=== PATIENT | female | born 1935 | race American Indian/Alaskan Native ===

== ENCOUNTER 2018-10-10 19:17 | Emergency (ER) | payer MEDICARE, OTHER ==
[~2018-10-10] VITALS: Ht 172.7 cm; Wt 93.4 kg
[~2018-10-10 19:17] MED LIST: ALEN70 PO; AMLO10 PO; AMLO5 PO; ASPI325; ASPI81CH PO; ASPI81EC PO; ATOR10 PO; BACL10 PO; BENZ100A PO; BP MEDS; CLON.1 PO; CYCL10 PO; ERGO50000 PO; FURO20 PO; FURO40 PO; HYDACE5; HYDACE5 PO; HYDCHL25 PO; K-Dur10 MEQ PO; LEVO750 PO; LEVSOD125 PO; LOSA25 PO; LOSA50 PO; MED FOR BP; MELO7.5 PO; METO25 PO; METO50 PO; METO50ER PO; MIRALAX17 GM PO; MORP15ER PO; MULVITMIND PO; NIFE20 PO; NORT10 PO; Norco 10-325 T1 EACH PO; OXYACE5T PO; OXYC1TAB11 PO; POTCHL10ER PO; PROACE100 PO; Potassium Chlo10 ME1 PO; TRAM50 PO; Ultram50 MG PO; VALS80; Ventolin/Prove6.7 GM INH; [UNRECOGNIZED DRUG - REMARK]; oxygen
== END 2018-10-10 20:46 | disposition home or self-care (01) ==
LOC: ER 19:17
DX: R51 Headache (principal); F11.23 Opioid dependence with withdrawal; G89.29 Other chronic pain; Z88.8 Allergy status to other drugs, medicaments and biological substances; Z79.899 Other long term (current) drug therapy; Z79.891 Long term (current) use of opiate analgesic; Z79.82 Long term (current) use of aspirin; I10 Essential (primary) hypertension; Z86.73 Personal history of transient ischemic attack (TIA), and cerebral infarction without residual deficits
CPT/HCPCS: 99283

== ENCOUNTER 2018-11-06 13:46 | Emergency (ER) | payer MEDICARE, OTHER ==
[~2018-11-06] VITALS: Ht 172.7 cm; Wt 94.3 kg
[2018-11-06 15:10] LABS: BASOPHILS ABSOLUTE AUTO 0.04 K/mm3 (0.00-0.23); BASOPHILS PERCENT AUTO 1 % (0-2); EOSINOPHILS ABSOLUTE AUTO 0.05 K/mm3 (0.00-0.68); EOSINOPHILS PERCENT AUTO 1 % (0-6); Hematocrit 38.2 % (33.0-51.0); Hemoglobin 12.7 g/dL (11.5-16.0); IMMATURE GRAN ABSOLUTE AUTO 0.01 K/mm3 (0.00-0.10); IMMATURE GRAN PERCENT AUTO 0 % (0-1); LYMPHOCYTES ABSOLUTE AUTO 1.31 K/mm3 (0.84-5.20); LYMPHOCYTES PERCENT AUTO 30 % (21-46); MONOCYTES ABSOLUTE AUTO 0.51 K/mm3 (0.16-1.47); MONOCYTES PERCENT AUTO 12 % (4-13); Mean Corpuscular HGB 33.3 pg (26.0-34.0); Mean Corpuscular HGB Conc 33.2 g/dL (31.5-36.5); Mean Corpuscular Volume 100 fL (80-100); Mean Platelet Volume 10.8 fL (9.1-12.4); NEUTROPHILS ABSOLUTE AUTO 2.49 K/mm3 (1.96-9.15); NEUTROPHILS PERCENT AUTO 57 % (41-73); NRBC ABSOLUTE 0.02 K/mm3 (0.00-0.02); NRBC Auto 0.5 /100 WBC (0.0-0.2); Platelet Count 219 K/mm3 (150-400); RDW Coefficient Variation 17.9 % (11.7-14.2); RDW Standard Deviation 66.3 fL (35.1-46.3); Red Blood Cell Count 3.81 M/mm3 (3.80-5.20); White Blood Cell Count 4.41 K/mm3 (4.00-11.30)
[2018-11-06 15:43] LABS: Alanine Aminotransfer (ALT/SGP 21 U/L (12-78); Albumin, Blood 4.1 g/dL (3.4-5.0); Albumin/Globulin Ratio 1.2 (0.8-1.8); Alk Phos 42 U/L (50-136); Anion Gap 10 mmol/L (6-16); Aspartate Aminotrans (AST/SGOT 16 U/L (12-37); Bilirubin, Total 0.4 mg/dL (0.1-1.0); Blood Urea Nitrogen 14 mg/dL (8-24); Bun/Creatinine Ratio 14.3 (12.0-20.0); CO2, Blood 23 mmol/L (21-32); Calcium, Blood 8.6 mg/dL (8.5-10.1); Chloride, Blood 110 mmol/L (98-108); Creatinine, Blood 0.98 mg/dL (0.40-1.00); Globulin, Blood 3.5 g/dL (2.2-4.0); Glomerular Filtration Rate 58 (60-); Glucose, Blood 163 mg/dL (70-99); Potassium, Blood 3.7 mmol/L (3.5-5.5); Sodium, Blood 143 mmol/L (136-145); Total Protein, Blood 7.6 g/dL (6.4-8.2); Troponin I <0.015 ng/mL (0.000-0.040)
[2018-11-10] MEDS ORDERED: Robaxin750 MG PO (11:48)
[2018-11-10] MEDS ORDERED: Norco 10-325 T1 EACH PO (11:48)
[2018-11-10] MEDS ORDERED: DONE5 PO (11:48)
[2018-11-10] MEDS ORDERED: METO25ER PO (11:49)
== END 2018-11-06 19:07 | disposition home or self-care (01) ==
LOC: ER 13:46
PROVIDERS: Physician Assistant
DX: M54.2 Cervicalgia (principal); G89.29 Other chronic pain; Z88.8 Allergy status to other drugs, medicaments and biological substances; Z79.899 Other long term (current) drug therapy; Z79.82 Long term (current) use of aspirin; Z79.891 Long term (current) use of opiate analgesic; I10 Essential (primary) hypertension; Z86.73 Personal history of transient ischemic attack (TIA), and cerebral infarction without residual deficits
CPT/HCPCS: 36415; 71046; 80053; 84484; 85025; 93005; 93010; 96374; 99285-25; J1885

== ENCOUNTER 2018-11-09 11:27 | Emergency (ER) | payer MEDICARE, OTHER ==
[~2018-11-09] VITALS: Ht 167.6 cm; Wt 93.9 kg
[~2018-11-09 11:27] MED LIST changes: -AMLO10 PO; -ASPI81CH PO; +Aspirin EC81 MG PO; +CHOL10002 PO; -LEVSOD125 PO; +Synthroid25 MCG PO
[2018-11-09 11:52] LABS: BASOPHILS ABSOLUTE AUTO 0.04 K/mm3 (0.00-0.23); BASOPHILS PERCENT AUTO 1 % (0-2); EOSINOPHILS ABSOLUTE AUTO 0.02 K/mm3 (0.00-0.68); EOSINOPHILS PERCENT AUTO 0 % (0-6); Hematocrit 37.4 % (33.0-51.0); Hemoglobin 12.4 g/dL (11.5-16.0); IMMATURE GRAN ABSOLUTE AUTO 0.02 K/mm3 (0.00-0.10); IMMATURE GRAN PERCENT AUTO 0 % (0-1); LYMPHOCYTES ABSOLUTE AUTO 1.04 K/mm3 (0.84-5.20); LYMPHOCYTES PERCENT AUTO 21 % (21-46); MONOCYTES ABSOLUTE AUTO 0.48 K/mm3 (0.16-1.47); MONOCYTES PERCENT AUTO 10 % (4-13); Mean Corpuscular HGB 32.9 pg (26.0-34.0); Mean Corpuscular HGB Conc 33.2 g/dL (31.5-36.5); Mean Corpuscular Volume 99 fL (80-100); Mean Platelet Volume 11.3 fL (9.1-12.4); NEUTROPHILS ABSOLUTE AUTO 3.42 K/mm3 (1.96-9.15); NEUTROPHILS PERCENT AUTO 68 % (41-73); NRBC ABSOLUTE 0.03 K/mm3 (0.00-0.02); NRBC Auto 0.6 /100 WBC (0.0-0.2); Platelet Count 224 K/mm3 (150-400); RDW Coefficient Variation 18.3 % (11.7-14.2); Red Blood Cell Count 3.77 M/mm3 (3.80-5.20); White Blood Cell Count 5.02 K/mm3 (4.00-11.30)
[2018-11-09 12:21] LABS: Alanine Aminotransfer (ALT/SGP 20 U/L (12-78); Albumin/Globulin Ratio 1.2 (0.8-1.8); Alk Phos 43 U/L (50-136); Anion Gap 9 mmol/L (6-16); Aspartate Aminotrans (AST/SGOT 14 U/L (12-37); Bilirubin, Total 0.4 mg/dL (0.1-1.0); Blood Urea Nitrogen 21 mg/dL (8-24); Bun/Creatinine Ratio 17.8 (12.0-20.0); CO2, Blood 25 mmol/L (21-32); Chloride, Blood 109 mmol/L (98-108); Creatinine, Blood 1.18 mg/dL (0.40-1.00); Globulin, Blood 3.4 g/dL (2.2-4.0); Glomerular Filtration Rate 47 (60-); Glucose, Blood 111 mg/dL (70-99); Magnesium, Blood 2.2 mg/dL (1.6-2.4); Potassium, Blood 3.6 mmol/L (3.5-5.5); Sodium, Blood 143 mmol/L (136-145); Total Protein, Blood 7.4 g/dL (6.4-8.2); Troponin I <0.015 ng/mL (0.000-0.040)
[2018-11-10] MEDS ORDERED: Robaxin750 MG PO (11:48)
[2018-11-10] MEDS ORDERED: Norco 10-325 T1 EACH PO (11:48)
[2018-11-10] MEDS ORDERED: DONE5 PO (11:48)
[2018-11-10] MEDS ORDERED: METO25ER PO (11:49)
== END 2018-11-09 13:13 | disposition home or self-care (01) ==
LOC: ER 11:27
PROVIDERS: Emergency Medicine
DX: I47.1 Supraventricular tachycardia (principal); E78.5 Hyperlipidemia, unspecified; F41.9 Anxiety disorder, unspecified; Z86.73 Personal history of transient ischemic attack (TIA), and cerebral infarction without residual deficits; I50.30 Unspecified diastolic (congestive) heart failure
CPT/HCPCS: 36415; 71046; 80053; 83735; 84484; 85025; 93005; 93010; 99285-25

== ENCOUNTER 2018-11-11 06:35 | Observation (INO) | payer MEDICARE, OTHER ==
[~2018-11-11] VITALS: Ht 172.7 cm; Wt 89.6 kg
[~2018-11-11 06:35] MED LIST changes: +DONE5 PO; +METO25ER PO; +Robaxin750 MG PO
[2018-11-11 07:06] LABS: BASOPHILS ABSOLUTE AUTO 0.04 K/mm3 (0.00-0.23); BASOPHILS PERCENT AUTO 1 % (0-2); EOSINOPHILS ABSOLUTE AUTO 0.05 K/mm3 (0.00-0.68); EOSINOPHILS PERCENT AUTO 1 % (0-6); Hematocrit 36.5 % (33.0-51.0); Hemoglobin 12.2 g/dL (11.5-16.0); IMMATURE GRAN ABSOLUTE AUTO 0.02 K/mm3 (0.00-0.10); IMMATURE GRAN PERCENT AUTO 0 % (0-1); LYMPHOCYTES ABSOLUTE AUTO 1.28 K/mm3 (0.84-5.20); LYMPHOCYTES PERCENT AUTO 23 % (21-46); MONOCYTES ABSOLUTE AUTO 0.63 K/mm3 (0.16-1.47); MONOCYTES PERCENT AUTO 11 % (4-13); Mean Corpuscular HGB 32.8 pg (26.0-34.0); Mean Corpuscular HGB Conc 33.4 g/dL (31.5-36.5); Mean Corpuscular Volume 98 fL (80-100); Mean Platelet Volume 10.4 fL (9.1-12.4); NEUTROPHILS ABSOLUTE AUTO 3.68 K/mm3 (1.96-9.15); NEUTROPHILS PERCENT AUTO 64 % (41-73); NRBC ABSOLUTE 0.02 K/mm3 (0.00-0.02); NRBC Auto 0.4 /100 WBC (0.0-0.2); Platelet Count 228 K/mm3 (150-400); RDW Coefficient Variation 18.6 % (11.7-14.2); Red Blood Cell Count 3.72 M/mm3 (3.80-5.20)
[2018-11-11 07:27] LABS: Albumin/Globulin Ratio 1.2 (0.8-1.8); Bilirubin, Total 0.5 mg/dL (0.1-1.0); Creatinine, Blood 0.95 mg/dL (0.40-1.00); Globulin, Blood 3.3 g/dL (2.2-4.0); Potassium, Blood 3.4 mmol/L (3.5-5.5); Total Protein, Blood 7.3 g/dL (6.4-8.2); Troponin I 0.032 ng/mL (0.000-0.040)
[2018-11-11 12:45] LABS: Magnesium, Blood 2.1 mg/dL (1.6-2.4)
[2018-11-11 12:49] LABS: Thyroid Stimulating Hormone 1.35 uIU/mL (0.360-4.800)
[2018-11-11] MEDS ORDERED: AMLO5 PO (16:23)
--- NOTE | 2018-11-11 16:30 | NUR ---
Echocardiogram completed.
--- NOTE | 2018-11-11 19:15 | NUR ---
ASSUMED CARE OF PT AT APPROXIMATELY 1730. PT ALERT AND ORIENTED. VS STABLE. HR NSR WITH BIGEMINAL PVC WITH A RATE OF 71. PT DENIES FEELING ANY SHORTNESS OF BREATH OR PAIN. HR HAS CONVERTED TO AFLUTTER FOR ABOUT 10 SECONDS WITH A RATE IN THE 140S AND THEN CONVERTS BACK TO NSR WITH PVC. SEE RHYTHM STRIP. PT AND FAMILY ORIENTED TO UNIT. FAMILY STATES PT HAS HX OF DEMENTIA. BED ALARM ON AND IN LOW POSITION. REPORT GIVEN TO DIPTI CAVAZOS.
[2018-11-12] MEDS ORDERED: SIME80CH PO (14:54)
[2018-11-12] MEDS ORDERED: GAVILAX17 GM PO (14:55)
[2018-11-12] MEDS ORDERED: Lopressor 25 mg25 MG PO (14:59)
== END 2018-11-12 15:33 | disposition home or self-care (01) ==
LOC: ER 06:35 → PCU 06:36 → ERHOLD 06:36 → PCU 06:37 → ERHOLD 17:18 → PCU 17:18
PROVIDERS: Emergency Medicine; ADMIT Internal Medicine
DX: I47.1 Supraventricular tachycardia (principal); I11.0 Hypertensive heart disease with heart failure; I50.33 Acute on chronic diastolic (congestive) heart failure; R77.8 Other specified abnormalities of plasma proteins; E87.6 Hypokalemia; E78.5 Hyperlipidemia, unspecified; F03.90 Unspecified dementia, unspecified severity, without behavioral disturbance, psychotic disturbance, mood disturbance, and anxiety; K21.9 Gastro-esophageal reflux disease without esophagitis; F41.9 Anxiety disorder, unspecified; M19.90 Unspecified osteoarthritis, unspecified site; G47.33 Obstructive sleep apnea (adult) (pediatric); Z88.8 Allergy status to other drugs, medicaments and biological substances; Z79.899 Other long term (current) drug therapy; Z79.82 Long term (current) use of aspirin
CPT/HCPCS: 36415; 71260; 80053; 83735; 83880; 84443; 84484; 85025; 93005; 93010; 93306; 96361-59; 96372; 96374-59; 96375; 96376-59; 99285-25; G0378; J1650; J2405; J7030; Q9967

== ENCOUNTER 2019-05-10 12:08 | Inpatient (IN) | payer MEDICARE, OTHER ==
[~2019-05-10] VITALS: Ht 165.1 cm; Wt 93.2 kg
[~2019-05-10 12:08] MED LIST changes: +GAVILAX17 GM PO; +Hair, Skin & N1 EACH PO; -LOSA50 PO; +LOSARTAN POTAS100 MG PO; +Lopressor 25 mg25 MG PO; -MULVITMIND PO; +Norco 10-325 T1 EACH; +SIME80CH PO
[2019-05-10 12:50] LABS: BASOPHILS ABSOLUTE AUTO 0.03 K/mm3 (0.00-0.23); BASOPHILS PERCENT AUTO 1 % (0-2); EOSINOPHILS ABSOLUTE AUTO 0.01 K/mm3 (0.00-0.68); EOSINOPHILS PERCENT AUTO 0 % (0-6); IMMATURE GRAN ABSOLUTE AUTO 0.06 K/mm3 (0.00-0.10); IMMATURE GRAN PERCENT AUTO 1 % (0-1); LYMPHOCYTES PERCENT AUTO 7 % (21-46); MONOCYTES ABSOLUTE AUTO 0.43 K/mm3 (0.16-1.47); MONOCYTES PERCENT AUTO 7 % (4-13); Mean Corpuscular HGB 29.1 pg (26.0-34.0); Mean Corpuscular HGB Conc 30.3 g/dL (31.5-36.5); Mean Corpuscular Volume 96 fL (80-100); Mean Platelet Volume 9.8 fL (9.1-12.4); NEUTROPHILS ABSOLUTE AUTO 5.19 K/mm3 (1.96-9.15); NEUTROPHILS PERCENT AUTO 85 % (41-73); NRBC ABSOLUTE 0.05 K/mm3 (0.00-0.02); NRBC Auto 0.8 /100 WBC (0.0-0.2); Platelet Count 286 K/mm3 (150-400); RDW Coefficient Variation 18.4 % (11.7-14.2); RDW Standard Deviation 64.2 fL (35.1-46.3); Red Blood Cell Count 1.82 M/mm3 (3.80-5.20); White Blood Cell Count 6.12 K/mm3 (4.00-11.30)
[2019-05-10 12:55] LABS: Hemoglobin 5.3 g/dL (11.5-16.0)
[2019-05-10 12:56] LABS: Hematocrit 17.5 % (33.0-51.0)
[2019-05-10 13:02] LABS: International Normalized Ratio 1.14; Prothrombin Time Results 11.9 Sec (9.7-11.5)
[2019-05-10 13:05] LABS: Bun/Creatinine Ratio 27.7 (12.0-20.0); Creatinine, Blood 1.19 mg/dL (0.40-1.00); Potassium, Blood 3.7 mmol/L (3.5-5.5)
[2019-05-10] MEDS ORDERED: MEMA5TAB PO (13:29)
[2019-05-10] MEDS ORDERED: FURO20 PO (13:31)
[2019-05-10] MEDS ORDERED: POTA10T PO (13:32)
[2019-05-10 14:53] LABS: Source, Urine Catheter
[2019-05-10 15:18] LABS: Appearance, Urine Clear (Clear); Bilirubin, Urine Neg (Neg); Blood, Urine 4+ (Neg); Color, Urine Yellow (P-Yellow); Glucose Qualitative, Urine Neg (Neg); Ketones, Urine Neg (Neg); Leukocyte Esterase, Urine 1+ (Neg); Nitrite, Urine Neg (Neg); Protein, Urine Neg (Neg); Specific Gravity, Urine 1.015 (1.003-1.022); Urobilinogen, Urine NORM (Normal)
[2019-05-10 15:42] LABS: Bacteria Mod /hpf; Red Blood Cells, Urine 0-2 /hpf (0-2); Squamous Epithelial Cells Few /hpf (Few); White Blood Cells, Urine 0-2 /hpf (0-5)
[2019-05-10 16:33] LABS: CHOL/HDL RATIO 1.8; Cholesterol 109 mg/dL (50-200); HDL Cholesterol 62 mg/dL (>39); LDL/HDL RATIO 0.4; Low Density Lipoprotein Chol 27 mg/dL (0-110); Triglycerides 100 mg/dL (30-160); Very Low Density Lipoprot Chol 20 mg/dL (6-32)
--- NOTE | 2019-05-10 16:53 | NUR ---
PT ADMITTED TO ICU FROM ER ON [facility]. AWAKE, ALERT, REPEATEDLY STATES NEEDS TO GO TO THE BATHROOM. PLACED ON BEDPAN-NO URINE. ABLE TO ANSWER WHAT HER NAME IS. DENIES PAIN. PERRL, MOVING ALL EXTREMTIES SPONTANEOUSLY. NSR 60'S, BP ELEVATED. NO N/V. COLOR PALE, SKIN W/D. PT'S HERE-UPDATED. DR. CASTANO AT BEDSIDE.
--- NOTE | 2019-05-10 17:41 | NUR ---
NGT PLACED BY SIDRA CAVAZOS-AIR BOLUS HEARD, NO GASTRIC CONTENTS, IRRIGATED. DR. CASTANO HERE AND AWARE. NG D/C. PT UNABLE TO VOID-BLADDER SCAN DONE-OVER 500 CC ON SCAN. ESCUDERO INSERTED BY SIDRA CAVAZOS WITH IMMEDIATE RETURN CLEAR YELLOW URINE. SINUS RHYTHM WITH OCC TO FREQUENT PVCS, BP ELEVATED WITH STRESS OF NG PLACEMENT, IMPROVING. REASSURANCE GIVEN, KNOWS IS IN HOSPITAL. UPDATE TO . MOVING ALL EXTREMITIES. 1ST UNIT BLOOD TRANSFUSION STARTED, CONSENT SIGNED BY . UPDATE TO DR. DÍAZ
--- NOTE | 2019-05-10 18:15 | NUR ---
NO S/S BLEEDING. COLOR PALE. BLOOD INFUSING NO S/S REACTION. NSR, BP STABLE. C/O NECK PAIN-HEATING PAD ON-STATES RELIEF. STATES HAD SOB BUT NOW DENIES. DENIES HEADACHE OR CHEST PAIN.
--- NOTE | 2019-05-10 19:15 | NUR ---
C/O NEEDING TO GO TO THE URINATE. EXPLAINED CATHETER-DRAINING CLEAR YELLOW URINE. BLADDER SCAN DONE-18 CC RESIDUAL. ABDOMEN SOFT. NO N/V. DEMANDING TO URINATE, MULTIPLE REASSURANCE GIVEN. RIGHT AC SITE INFILTRATED. POOR ACCESS. FIRST UNIT PC INFUSED
--- NOTE | 2019-05-10 22:00 | NUR ---
RICHI IS AWAKE, ALERT & ANXIOUS. MOVING ALL EXTREM WO DIFF, POSS LLL HAS LESS MVMT. NOTED W SL L FACIAL DROOP, SPEECH IS GEN CLEAR, BUT PERSEVERATES ABOUT GETTING OUT OF BED, AND CO URINARY URGENCY DESPITE ESCUDERO DRNG MOD AMT CL YELLOW URINE. SECOND UNIT OF PRBC INFUSING & PT REQUIRED ANOTHER IV SITE, AFTER INFILTRATION. CONT W PROTONIX INFUSION, MAINT FLUIDS AT TKO DURING INFUS. NO EMESIS, NO STOOL, NO FLATUS. PT WAS PLACED IN SOFT WRIST RESTRAINTS TO MAINTAIN IV'S, & ESCUDERO, PT TRYING TO CLIMB OUT OF BED. HEATING PAD TO BACK NECK FOR CO NECK PAIN, PT HAS CHRONICALLY, DIFF TO EVAL IF HELPFUL PT INCONSISTENT W COMPLAINTS. PT CALLED, UPDATE GIVEN, ATTEMPTED TO REVIEW MEDS FOR RECONCILIATION, BUT PT REFERRED ME TO LIST HE PROVIDED ACKNOWLEDGING POOR HANDWRITING & ASKED ME TO GET LIST FROM [facility].
[2019-05-11 00:02] LABS: BASOPHILS ABSOLUTE AUTO 0.03 K/mm3 (0.00-0.23); BASOPHILS PERCENT AUTO 0 % (0-2); EOSINOPHILS ABSOLUTE AUTO 0.06 K/mm3 (0.00-0.68); EOSINOPHILS PERCENT AUTO 1 % (0-6); Hematocrit 21.4 % (33.0-51.0); Hematocrit 22.2 % (33.0-51.0); Hemoglobin 7.1 g/dL (11.5-16.0); IMMATURE GRAN ABSOLUTE AUTO 0.09 K/mm3 (0.00-0.10); IMMATURE GRAN PERCENT AUTO 1 % (0-1); LYMPHOCYTES ABSOLUTE AUTO 1.48 K/mm3 (0.84-5.20); LYMPHOCYTES PERCENT AUTO 17 % (21-46); MONOCYTES ABSOLUTE AUTO 0.97 K/mm3 (0.16-1.47); MONOCYTES PERCENT AUTO 11 % (4-13); Mean Corpuscular HGB 29.4 pg (26.0-34.0); Mean Corpuscular HGB Conc 32.7 g/dL (31.5-36.5); Mean Platelet Volume 9.7 fL (9.1-12.4); NEUTROPHILS ABSOLUTE AUTO 6.25 K/mm3 (1.96-9.15); NEUTROPHILS PERCENT AUTO 70 % (41-73); NRBC ABSOLUTE 0.06 K/mm3 (0.00-0.02); NRBC Auto 0.7 /100 WBC (0.0-0.2); Platelet Count 231 K/mm3 (150-400); RDW Coefficient Variation 16.8 % (11.7-14.2); RDW Standard Deviation 54.2 fL (35.1-46.3); Red Blood Cell Count 2.38 M/mm3 (3.80-5.20); White Blood Cell Count 8.88 K/mm3 (4.00-11.30)
[2019-05-11 00:03] LABS: Mean Corpuscular Volume 90 fL (80-100)
[2019-05-11 00:22] LABS: Percent Saturation 78.5 % (15.0-50.0)
--- NOTE | 2019-05-11 01:00 | NUR ---
PT CONT AGITATED & RESTLESS. HAS REMOVED PAS W FEET & MANAGED TO ALSO REMOVE STATLOCK FOR ESCUDERO, WHICH WAS REPLACED. CONT W RD SOFT WRIST RESTRAINTS, & YELLING TO STAFF. H&H REPORTED TO HOSP, AND TRANSFUSION PARAMETERS REC'D, ALSO ORDER FOR FENTANYL. PT HAS BEEN MED, ONLY MINIMAL RESULT NOTED. CONT WO ANY SIGN OF BLEEDING.
--- NOTE | 2019-05-11 03:00 | NUR ---
ORDER RECEIVED & PT MED W ZYPREXA AFTER PT SEEN BY DR OLIVER. CONT W WRIST RESTRAINTS. PT WAS ABLE TO DISCONNECT ESCUDERO, PART LINEN CHANGE. CONT TO MON. LIGHTS LOW W ATTEMPT TO DECREAS STIMULATION & PROMOTE REST. NO SIGN OF BLEEDING.
[2019-05-11 03:21] LABS: BASOPHILS ABSOLUTE AUTO 0.04 K/mm3 (0.00-0.23); BASOPHILS PERCENT AUTO 1 % (0-2); EOSINOPHILS ABSOLUTE AUTO 0.07 K/mm3 (0.00-0.68); EOSINOPHILS PERCENT AUTO 1 % (0-6); Hematocrit 22.5 % (33.0-51.0); Hemoglobin 7.2 g/dL (11.5-16.0); IMMATURE GRAN PERCENT AUTO 1 % (0-1); LYMPHOCYTES ABSOLUTE AUTO 0.83 K/mm3 (0.84-5.20); LYMPHOCYTES PERCENT AUTO 10 % (21-46); MONOCYTES PERCENT AUTO 9 % (4-13); Mean Corpuscular HGB 28.7 pg (26.0-34.0); Mean Corpuscular Volume 90 fL (80-100); Mean Platelet Volume 9.4 fL (9.1-12.4); NEUTROPHILS ABSOLUTE AUTO 6.84 K/mm3 (1.96-9.15); NEUTROPHILS PERCENT AUTO 79 % (41-73); NRBC ABSOLUTE 0.07 K/mm3 (0.00-0.02); NRBC Auto 0.8 /100 WBC (0.0-0.2); Platelet Count 241 K/mm3 (150-400); RDW Coefficient Variation 17.1 % (11.7-14.2); RDW Standard Deviation 56.5 fL (35.1-46.3); Red Blood Cell Count 2.51 M/mm3 (3.80-5.20); White Blood Cell Count 8.68 K/mm3 (4.00-11.30)
[2019-05-11 03:36] LABS: Anion Gap 7 mmol/L (6-16); Blood Urea Nitrogen 22 mg/dL (8-24); Bun/Creatinine Ratio 25.3 (12.0-20.0); CO2, Blood 26 mmol/L (21-32); Calcium, Blood 8.3 mg/dL (8.5-10.1); Chloride, Blood 111 mmol/L (98-108); Creatinine, Blood 0.87 mg/dL (0.40-1.00); Glomerular Filtration Rate >60 (60-); Glucose, Blood 118 mg/dL (70-99); Potassium, Blood 2.9 mmol/L (3.5-5.5); Sodium, Blood 144 mmol/L (136-145)
--- NOTE | 2019-05-11 07:00 | NUR ---
DR CASTANO CALLED TO CHECK ON PT STATUS. ORDERS REC'D. PLANS FOR EGD THIS AFTERNOON. DAYSURGERY NOTIFIED. PT WAS NOTED TO BE PASSING FLATUS, BUT OTHERWISE WO ANY STOOL OR EMESIS.
--- NOTE | 2019-05-11 08:13 | NUR ---
ASSESSMENT- PT AWAKE, CALLING OUT FOR HELP. MULTIPLE REASSURANCES GIVEN. ABLE TO STATE NAME AND WHERE SHE IS. CAN FOLLOW SOME DIRECTIONS. C/O NECK PAIN, REPOSITIONED, HEATING PAD ON. RX FOR PAIN COMPLAINTS, STATES FEELS BETTER AND "I CAN TAKE A NAP NOW". BILATERAL WRIST RESTRAINTS OFF, NOT PULLING AT LINES. WILL MONITOR. ORAL CARE DONE. LEFT SLIGHT FACIAL DROOP, MOVES ALL EXTREMITIES IN BED. NO S/S BLEEDING. NSR, BP STABLE VIA RIGHT WRIST BP CUFF. PIV X 2 LEFT HAND INTACT WITH PROTONIX AT 10 CC/HR AND NS AT 50 CC/HR. ANOTHER SITE PLACED RIGHT WRIST. LUNGS CLEAR, NO SOB. DENIES ANY CP OR ABDOMINAL PAIN. ABDOMEN SOFT, NONTENDER. UO VIA ESCUDERO.
--- NOTE | 2019-05-11 08:28 | NUR ---
PT SLEEPING NOW WITHOUT ANY DISTRESS. CALLED-UPDATED. STATES WILL TRY TO BE HERE FOR SCOPE TODAY.
--- NOTE | 2019-05-11 09:58 | NUR ---
PT RESTING, ASSISTED TO REPOSITION FOR COMFORT. DR. CASTANO CALLED-UPDATED WITH K REPLACEMENT, WILL DRAW LEVEL AT NOON. VSS. PT ABLE TO TAKE PREP
--- NOTE | 2019-05-11 11:41 | NUR ---
PT MORE AWAKE AND RESTLESS. WANTS TO GET OOB TO URINATE. EXPLAINED PLAN OF CARE. REPOSITIONED. GRANDDAUGHTER HERE-UPDATED. DR. DÍAZ HERE-UPDATED. ORDERS FOR LOPRESSOR AND NORVASC TO BE HELD. POTASSIUM INFUSING. WILL CHECK LABS ORDERED.
[2019-05-11 12:25] LABS: Hematocrit 22.1 % (33.0-51.0)
--- NOTE | 2019-05-11 12:54 | NUR ---
AWAKE, NEEDS MUCH REASSURANCE TO NOT PULL AT LINES AND THAT SHE IS OK. STATES NECK FEELS BETTER. HAS PERIODS THAT SHE HAS NORMAL CONVERSATION AND THEN PERIODS OF REPETITIVE QUESTIONS AND DEMANDS. VSS. NO S/S BLEEDING
--- NOTE | 2019-05-11 13:06 | NUR ---
UPDATE TO PHYSICIANS- CALLED DR. CASTANO WITH H/H AND K LEVEL. ORDERS TO TRANSFUSE ONE UNIT. PLANS FOR EGD AT 1630. CALLED DR. DÍAZ WITH UPDATE. PT RESTLESS, ON BEDPAN NOW
[2019-05-11] MEDS ORDERED: BACL10 (14:43)
[2019-05-11] MEDS ORDERED: Oyster Shell C500 MG PO (14:44)
[2019-05-11] MEDS ORDERED: Excedrin Extra1 EACH PO (14:45)
[2019-05-11] MEDS ORDERED: TIZA4 PO (14:49)
--- NOTE | 2019-05-11 14:55 | NUR ---
MEDICATION REC- DISCUSSED MEDICATIONS WITH PT'S . STATES NO ALLERGY TO BACLOFEN. REVIEWED MEDICATION LIST WITH PT'S -UPDATED ON MED REC.
--- NOTE | 2019-05-11 15:19 | NUR ---
Echocardiogram completed.
--- NOTE | 2019-05-11 15:22 | NUR ---
BLOOD INFUSING WITHOUT ANY S/S REACTION. BEDSIDE ECHO DONE. PT'S HERE-UPDATED. PT CALMER. SMALL SMEAR STOOL-LINEN CHANGE
--- NOTE | 2019-05-11 16:22 | NUR ---
PT RESTING. SURGERY CREW IN ROOM PREPARING FOR SCOPE
--- NOTE | 2019-05-11 16:36 | NUR ---
05/11/19 1636 Yamil Fortune History, Chart, Medications and Allergies reviewed before start of procedure.MONITOR INTACT WITH CONTINUOUS PULSE OXIMETRY AND INTERMITTENT BP.3-LEAD EKG REVIEWED WITH PHYSICIAN PRIOR TO START OF PROCEDURE.O2 VIA N/C INTACT THROUGHOUT SEDATION/PROCEDURE. Patient confirms NPO status and agrees with scheduled surgery.See Anesthesia record.
--- NOTE | 2019-05-11 17:26 | NUR ---
SCOPE- PROCEDURE STARTED. DELAYED DUE TO LEAVING BEFORE CONSENT FOR ANESTHESIA-RETURNED AND CONSENT OBTAINED BY DR. ANDERSON. LUNGS COARSE, LASIX 10 MG GIVEN IV PER ORDERS. MAINTAINING SATURATIONS.
--- NOTE | 2019-05-11 17:43 | NUR ---
Per admit trigger, I met with Mrs. Mix to offer prayer and spiritual support. She was alone in room, restless and confused. She appears frail and was unable to understand conversation. I prayed at bedside and offered calm presence/assurance of safety. I will remain available to pt and family.
--- NOTE | 2019-05-11 18:15 | NUR ---
SCOPE COMPLETE. PT SEDATE, POSTIONED ON LEFT SIDE. AWAKENS TO NAME. AT BEDSIDE. VSS. LUNGS IMPROVED. PIV X 2 INTACT. NS AT 75 CC/HR, PROTONIX AT 10 CC/HR. UO GOOD VIA ESCUDERO AFTER LASIX. PLANS FOR COLONOSCOPY TOMORROW, PREP TO BE GIVEN TONIGHT
[2019-05-11 18:37] LABS: Hematocrit 29.4 % (33.0-51.0); Hemoglobin 9.3 g/dL (11.5-16.0)
--- NOTE | 2019-05-11 19:00 | NUR ---
BECOMING MORE AGITATED, PICKING AT LINES. INCONTINENT SMALL AMOUNT BURGUNDY STOOL, LINEN CHANGE X 2 DONE. MULTIPLE REASSURANCES, REDIRECTION. REPORT TO DAVEY CAVAZOS
--- NOTE | 2019-05-11 23:00 | NUR ---
1914: ASSUMED CARE OF PT, REPORT RCV'D FROM MACY CHINO. PT ALERT TO VERBAL STIMULI AND CONFUSED. PT HAS PERIODS OF CLARITY WHERE SHE APPEARS TO UNDERSTAND WHERE SHE IS AND WHAT HER SITUATION IS. OTHERWISE SHE YELLS "SOMEBODY HELP ME" AND ASKS REPEATEDLY WHAT SHE HAS DONE "TO DESERVE THIS". PT PLACED IN BILATERAL SOFT WRIST RESTRAINTS AT 2110 D/T CONFUSION AND PULLING ON ESCUDERO. NG TUBE PLACED TO ASSIST IN ADMINISTERING GOLYTELY PRESCRIBED. PT ALREADY INCONTINENT OF MAROON LIQUID STOOL SO RECTAL TUBE PLACED. GOLYTELY STARTED @2049 AND FINISHED @2314. RECTAL TUBE BAG CHANGED AT 2344. STOOL STILL BROWN/MAROON. NEUROLOGICAL EXAM COMPLETED, MINIMAL LEFT SIDED FACIAL DROOP NOTICED. NO CHANGE PER DAYSHIFT NURSE. PT COMPLAINS OF NECK/BACK/ARM PAIN, MEDICATED PER EMAR NEEDED. NS @75 ML/HR. PROTONIX @10 ML/HR. SEE FULL SHIFT ASSESSMENT.
[2019-05-12 03:29] LABS: BASOPHILS ABSOLUTE AUTO 0.04 K/mm3 (0.00-0.23); BASOPHILS PERCENT AUTO 1 % (0-2); EOSINOPHILS ABSOLUTE AUTO 0.09 K/mm3 (0.00-0.68); EOSINOPHILS PERCENT AUTO 1 % (0-6); Hematocrit 25.1 % (33.0-51.0); Hemoglobin 8.1 g/dL (11.5-16.0); IMMATURE GRAN ABSOLUTE AUTO 0.06 K/mm3 (0.00-0.10); IMMATURE GRAN PERCENT AUTO 1 % (0-1); LYMPHOCYTES ABSOLUTE AUTO 0.97 K/mm3 (0.84-5.20); LYMPHOCYTES PERCENT AUTO 12 % (21-46); MONOCYTES ABSOLUTE AUTO 1.08 K/mm3 (0.16-1.47); MONOCYTES PERCENT AUTO 13 % (4-13); Mean Corpuscular HGB 29.1 pg (26.0-34.0); Mean Corpuscular HGB Conc 32.3 g/dL (31.5-36.5); Mean Corpuscular Volume 90 fL (80-100); Mean Platelet Volume 9.1 fL (9.1-12.4); NEUTROPHILS ABSOLUTE AUTO 5.88 K/mm3 (1.96-9.15); NEUTROPHILS PERCENT AUTO 73 % (41-73); NRBC ABSOLUTE 0.06 K/mm3 (0.00-0.02); NRBC Auto 0.7 /100 WBC (0.0-0.2); Platelet Count 217 K/mm3 (150-400); RDW Coefficient Variation 17.4 % (11.7-14.2); RDW Standard Deviation 57.5 fL (35.1-46.3); Red Blood Cell Count 2.78 M/mm3 (3.80-5.20); White Blood Cell Count 8.12 K/mm3 (4.00-11.30)
[2019-05-12 03:49] LABS: Albumin, Blood 3.4 g/dL (3.4-5.0); Anion Gap 7 mmol/L (6-16); Blood Urea Nitrogen 14 mg/dL (8-24); Bun/Creatinine Ratio 18.3 (12.0-20.0); CO2, Blood 27 mmol/L (21-32); Calcium, Blood 7.5 mg/dL (8.5-10.1); Chloride, Blood 114 mmol/L (98-108); Creatinine, Blood 0.76 mg/dL (0.40-1.00); Glomerular Filtration Rate >60 (60-); Glucose, Blood 109 mg/dL (70-99); Phosphorus, Blood 1.4 mg/dL (2.5-4.9); Sodium, Blood 148 mmol/L (136-145)
--- NOTE | 2019-05-12 06:00 | NUR ---
SHIFT SUMMARY PT CONFUSED ENTIRE SHIFT. PT CONTINUED TO TRY AND PULL OUT LINES/TUBES AND DID SUCCESSFULLY PULL OUT HER NG TUBE WHILE RESTRAINED. PT REMAINS RESTRAINED WITH BILATERAL SOFT WRIST RESTRAINTS TO PROTECT ESCUDERO, RECTAL TUBE, AND IV'S. PT IS YELLING OUT FOR AND INSISTS THAT SHE IS AT HOME AND NOT AT THE HOSPITAL DESPITE REORIENTATION. 4 LITER OF GOLYTELY SUCCESSFULLY GIVEN DOWN NGT. RECTAL TUBE REMAINS IN PLACE WITH 2300 OUT IN COLLECTION BAG AND SIGNIFICANT AMOUNTS IN THE BED. BOWEL MOVEMENT IS CLEAR, RED. PT HAD 4 INCIDENCES OF SVT LASTING 30-45 SECONDS WITH HR>160. PROTONIX GTT @10 ML/HR, NS@75 ML/HR, KCL@ 50 ML/HR. WILL REPORT TO DAYSHIFT NURSE. CURRENTLY
--- NOTE | 2019-05-12 06:40 | NUR ---
DR. CASTANO CALL TO CHECK ON PROGRESS OF PT'S BOWEL PREP. ENGRSTOM ORDER TO REMOVE RECTAL TUBE AND HE WILL CALL BACK LATER THIS MORNING TO ASSESS PT'S PREP.
--- NOTE | 2019-05-12 08:48 | NUR ---
ASSUMPTION OF CARE ASSUMED CARE OF PT @ 0700. REPORT FROM GROUP INSURANCE SPECIAL AGENT RN THAT THE PT DID NOT SLEEP WELL T/O NIGHT. PT NOW SLEEPING IN BED, VSS. BILATERAL WRIST RESTRAINTS IN PLACE TO PROTECT TUBES/LINES/CORDS. PLAN: COLONOSCOPY SCHEDULED FOR TODAY, WILL INQUIRE REGARDING LOW PHOS
--- NOTE | 2019-05-12 09:00 | NUR ---
PT WAKING UP, AROUSES TO VERBAL STIMULI, BUT QUICKLY FALLS BACK TO SLEEP. PT CONFUSED TO LOCATION, STS SHE IS AT A HOTEL.
--- NOTE | 2019-05-12 09:50 | NUR ---
PROLONGED RUN OF SVT WHILE IN PTS ROOM, MONITOR SHOWED SVT RHYTHM WITH RUN LASTING APPROX 5 MINUTES. PT COMPLAINED OF R SIDED CP THAT WAS WORSE WITH INSPIRATION, CRACKLES NOTED TO RIGHT LOBE. PTS BP INCREASED TO 213/96. CALL TO DR FRANKLIN PLACED. NEW ORDERS FOLLOWS: ORDER MAGNESIUM BLOOD LEVEL CHEST XRAY METOPROLOL TARTRATE 25MG PO BID POTASSIUM PHOSPHOROUS 30 MMOL IV X1 H&H FOR 05/12/19 @ 1400 METOPROLOL ADMINISTERED, BP IMPROVED.
--- NOTE | 2019-05-12 11:00 | NUR ---
DR CASTANO GIVEN UPDATE OVER THE PHONE; NEW ORDERS TO PLACE NG AND GIVE 2 LITERS GOLYTELY, AND TO DC RECTAL TUBE. 16F NGT PL[address] TO RIGHT NARE. LIDOCAINE JELLY USED. PT TOLERATED PROCEDURE VERY WELL. POSITION CONFIRMED BY AUSCULTATION OVER STOMACH, ASP OF GASTRIC CONTENT, AND CHEST XRAY. GOLYTELY GIVEN OVER 1 HR. LARGE AMT OF THIN LIQUID DARK BLOOD FOLLOWED PER RECTUM. RECTAL TUBE DC'D AT 1100. PT ABLE TO USE BEDPAN AT TIMES, INCONTINENT WELL.
[2019-05-12 14:32] LABS: Hematocrit 24.8 % (33.0-51.0)
--- NOTE | 2019-05-12 15:30 | NUR ---
DAY SURGERY TO ROOM TO PREP FOR COLONOSCOPY
--- NOTE | 2019-05-12 16:33 | NUR ---
05/12/[address] HERE TO PROVIDE ANESTHESIA CARE, PLEASE SEE ANESTHESIA RECORD FOR DETAILS. History, Chart, Medications and Allergies reviewed before start of procedure. Patient confirms NPO status and agrees with scheduled surgery. MONITOR INTACT WITH CONTINUOUS PULSE OXIMETRY AND INTERMITTENT BP. O2 VIA NRB 10L INTACT THROUGHOUT SEDATION/PROCEDURE.
--- NOTE | 2019-05-12 19:31 | NUR ---
SHIFT SUMMARY PT RESTED T/O SHIFT, AROUSES TO VERBAL STIMULI. PT REMAINS CONFUSED, REQUIRING REORIENTATION. PT COOPERATIVE, FOLLOWING DIRECTIONS BUT ANXIOUS AT TIMES. VSS THROUGH MOST OF SHIFT, PROLONGED RUN OF SVT AT BEGINNING OF SHIFT (SEE NURSE NOTE). NGT INSERTED THIS SHIFT PER PHYSICIAN ORDER, GO-LYTLEY ADMINISTERED VIA NG FOR PROCEDURE PREP. COLONOSCOPY PERFORMED THIS SHIFT BY DR CASTANO, REFER TO PROCEDURE NOTE. PT WOKE UP FROM ANESTHESIA SLIGHTLY CONFUSED, SHIVERING AND STATING SHE WAS COLD. WARM BLANKETS PROVIDED. NG TUBE DC'D PER DR CASTANO, PT TOLERATED WELL.
--- NOTE | 2019-05-12 19:34 | NUR ---
PT'S QT NOTED TO BE PROLONGED THIS EVENING. QTC .533 IN AM AND .500 THIS EVENING. EKG COMPLETED AND SHOWED .501. TRINITY MARINA NOTIFIED, NO NEW ORDERS, WILL CONTINUE TO MONITOR QTC. DAVEY CAVAZOS NOTIFIED.
--- NOTE | 2019-05-12 19:44 | NUR ---
ASSUMED CARE OF PT, REPORT RCV'D FROM MACY GARNETT. PT DROWSY, ALERT TO NAME AND STATES LOCATION "HOSPITAL", PT UNABLE TO RECALL SITUATION, MONTH, AND STATES YEAR "[birth year]". PT FOLLOWS COMMANDS AND ASSISTS WITH CARE, PT ABLE TO REPOSITION SELF FOR COMFORT AND VERBALLY EXPRESS NEEDS. LUNG SOUNDS CLEAR T/O. SATS>94% ON ROOM AIR. VSS. ESCUDERO PATENT AND DRAINING CLEAR YELLOW URINE. NS @75 ML/HR, PROTONIX GTT@ 10 ML/HR. BED IN LOW LOCKED POSITION, SIDE RAILS UP, BED ALARM ON, DOOR AND CURTAIN OPEN. SEE FULL SHIFT ASSESSMENT.
[2019-05-12 20:23] LABS: Hematocrit 24.2 % (33.0-51.0); Hemoglobin 7.5 g/dL (11.5-16.0)
[2019-05-13 04:06] LABS: BASOPHILS ABSOLUTE AUTO 0.04 K/mm3 (0.00-0.23); BASOPHILS PERCENT AUTO 1 % (0-2); EOSINOPHILS ABSOLUTE AUTO 0.16 K/mm3 (0.00-0.68); EOSINOPHILS PERCENT AUTO 2 % (0-6); Hematocrit 24.5 % (33.0-51.0); Hemoglobin 7.6 g/dL (11.5-16.0); IMMATURE GRAN ABSOLUTE AUTO 0.04 K/mm3 (0.00-0.10); IMMATURE GRAN PERCENT AUTO 1 % (0-1); LYMPHOCYTES ABSOLUTE AUTO 1.04 K/mm3 (0.84-5.20); LYMPHOCYTES PERCENT AUTO 15 % (21-46); MONOCYTES ABSOLUTE AUTO 0.82 K/mm3 (0.16-1.47); MONOCYTES PERCENT AUTO 12 % (4-13); Mean Corpuscular HGB 29.3 pg (26.0-34.0); Mean Platelet Volume 9.3 fL (9.1-12.4); NEUTROPHILS ABSOLUTE AUTO 4.88 K/mm3 (1.96-9.15); NEUTROPHILS PERCENT AUTO 70 % (41-73); NRBC ABSOLUTE 0.05 K/mm3 (0.00-0.02); NRBC Auto 0.7 /100 WBC (0.0-0.2); Platelet Count 195 K/mm3 (150-400); RDW Coefficient Variation 17.2 % (11.7-14.2); RDW Standard Deviation 58.1 fL (35.1-46.3); Red Blood Cell Count 2.59 M/mm3 (3.80-5.20); White Blood Cell Count 6.98 K/mm3 (4.00-11.30)
[2019-05-13 04:07] LABS: Mean Corpuscular Volume 95 fL (80-100)
[2019-05-13 04:25] LABS: Alanine Aminotransfer (ALT/SGP 18 U/L (12-78); Albumin, Blood 3.1 g/dL (3.4-5.0); Albumin/Globulin Ratio 1.1 (0.8-1.8); Alk Phos 31 U/L (50-136); Anion Gap 5 mmol/L (6-16); Aspartate Aminotrans (AST/SGOT 12 U/L (12-37); Bilirubin, Total 0.7 mg/dL (0.1-1.0); Blood Urea Nitrogen 7 mg/dL (8-24); Bun/Creatinine Ratio 10.3 (12.0-20.0); CO2, Blood 25 mmol/L (21-32); Chloride, Blood 116 mmol/L (98-108); Creatinine, Blood 0.68 mg/dL (0.40-1.00); Globulin, Blood 2.7 g/dL (2.2-4.0); Glomerular Filtration Rate >60 (60-); Glucose, Blood 108 mg/dL (70-99); Phosphorus, Blood 1.6 mg/dL (2.5-4.9); Potassium, Blood 3.1 mmol/L (3.5-5.5); Sodium, Blood 146 mmol/L (136-145); Total Protein, Blood 5.8 g/dL (6.4-8.2)
--- NOTE | 2019-05-13 05:38 | NUR ---
SHIFT SUMMARY PT REMAINS ACUTELY CONFUSED WITH PERIODS OF HALLUCINATIONS (I.E. BELIEVING THE ROOM WAS ON FIRE AND THINKING THAT SHE HAD BEEN KIDNAPPED). PT PLACED IN BILATERAL SOFT-WRIST RESTRAINTS AT 0200 TO PROTECT LINES/TUBES. PT PULLED 2 IV'S, PULLED SCD'S OFF, PULLED 2 STAT LOCKS OFF ATTEMPTING TO REMOVE ESCUDERO, AND WAS ATTEMPTING TO GET OUT OF BED ON SEVERAL OCCASIONS. PT YELLS FOR HELP, IS REORIENTED AND QUICKLY BECOMES CONFUSED AGAIN. BED ALARM REMAINS ON, BED IN LOW LOCKED POSITION, SIDE RAILS UP, CURTAIN/DOOR OPEN. PT HAS HAD PERIODS OF HTN, WHICH COULD BE ATTRIBUTED TO MOVING IN BED WHILE BP CUFF INFLATING/DEFLATING. ESCUDERO PATENT AND DRAINING CLEAR YELLOW URINE. PT ATTEMPTED TO USE BEDPAN ON 2 OCCASIONS BUT WAS UNABLE TO HAVE BOWEL MOVEMENT. ATTENDS IN PLACE. NO SIGNS OF ACTIVE BLEEDING NOTED. AM H/H SHOWS IMPROVEMENT. K+ AND PHOS BEING REPLACED THIS MORNING. NS@ 75 ML/HR. POWERGLIDE IN [place]. NO RUNS OF SVT THIS SHIFT. PT ABLE TO SWALLOW USING A STRAW WELL WHEN SHE WANTS TO, NO COUGHING. MORNING PO PRILOSEC HELD D/T PT'S INCREASED CONFUSION AND RISK FOR ASPIRATION. WILL REPORT TO DAYSHIFT NURSE.
--- NOTE | 2019-05-13 07:55 | NUR ---
BEGINNING OF SHIFT Assumed care at 0700. Bedside report received from Jalen CAVAZOS. Pt on room air. Pt confused, yelling out "Help me! Somebody please help me! Cut my hands loose!". Pt in bilateral soft wrist restraints. This RN asked pt about current location, pt states she is in "[facility]". Pt states current year is "1976". Mccray catheter removed and pt taken out of restraints. Will continue to assess need for restraints.
--- NOTE | 2019-05-13 11:08 | NUR ---
UPDATE Pt's spouse called unit for update. Update provided. Call transferred into pt's room so pt could speak to her . Pt remains out of restraints. Pt up to chair with physical therapy. This RN and KANDACE Cantor assisted to to use BSC. Pt voided urine into commode. Pt assisted back to chair.
[2019-05-13 12:15] LABS: Hematocrit 25.9 % (33.0-51.0)
--- NOTE | 2019-05-13 13:17 | NUR ---
PT BACK TO BED Pt assisted again to use bedside commode and then back to bed, per pt request. Pt medical floor status without telemetry.
--- NOTE | 2019-05-13 14:53 | NUR ---
PT VISITING WITH Pt up in chair per OT. Pt states her neck is in pain. Pt does not provide numerical value for severity of pain, nor does she describe quality of pain. Pt's spouse states that they treat the pt's neck pain with ice and heat at home.
--- NOTE | 2019-05-13 16:02 | NUR ---
CODE STATUS POLST form found in chart stating that pt is a DNR. Discussed POLST with Niurka CAVAZOS from palliative care. Discussion with pt and spouse regarding code status. Pt and spouse state wishes agreeable with existing POLST. Dr Richey notified. Code status changed to DNR.
--- NOTE | 2019-05-13 17:04 | NUR ---
Initial Visit; Pt here for CVA, found in the ER to have a GI bleed as well. Pt of Dr. Henry's. She is alert, not oriented. She believes it to be 1974 and states that Horacio is president. She has history of dementia. Pt's , Tony, is at bedside. Reviewed POLST form with both of them. Tony defers to her to make her own choices. Pt has existing POLST from 2016. Interventions reviewed. CPR and intubation explained to her carefully. She states that she will accept intubation, but she does not want CPR/chest compressions. This is consistent with existing POLST wishes. Tony reports that pt's function is day-by-day basis. There are days that she is able to walk, usually with a cane, sometimes she forgets to use it. Some days she is able to get her pants on, other days he has to help her with it. He states that it is common for her to get both legs into one leg hole in her pants. She has fallen in the past. He reports that she is not always able to participate in activities. She likes to go fishing with him at times, but she sits in the truck and watches from the shore. She has locked herself in a [id number] once, so he reports that she is supervised most of the time. He feels that she is "fairly safe" in the home. He does not have concerns at this time. He leaves shortly thereafter to go home. She is upset when she finds out that he has left and tries to get out of bed. She is coaxed back into bed, but states that she is not happy with him leaving her here and wants to go home. Will remain available if needed.
--- NOTE | 2019-05-13 18:11 | NUR ---
SUMMARY Pt has been OOB several times to sit into chair and use bedside commode. Pt transfers well with one person assist and gait belt. This RN found pt in room with powerglide removed from arm. Pt pulling on dressing. This RN notified Dr Richey. Pt okay to not have IV access. Okay to DC IV fluids. Plans for pt to transfer to room 351.
--- NOTE | 2019-05-13 18:46 | NUR ---
PT TRANSFERRED TO ROOM FROM ICU. SETTLED TO BED. PT ALERT, TO SELF AND FOLLOWING BASIC DIRECTIONS. BED IN LOW POSITION, CALL LITE IN REACH, BED ALARM ON FOR SAFETY,
--- NOTE | 2019-05-13 22:49 | NUR ---
RICHI IS UP AND DOWN OUT OF BED, UNSTEADY ON HER FEET, CONTINUES TO TAKE OFF HER CLOTHES, IS CONFUSED YELLING OUT FOR HER AND DAUGHTER. WERE CONTINUEING TO REORIENT HER AND PROVIDE HER COMFORT. SHE IS CONSTANTLY RESTLESS TRYING TO GET OUT OF BED. THEREFORE WILL CALL MD TO SEE IF WE CAN GET HER SOMETHING TO HELP.
--- NOTE | 2019-05-13 22:58 | NUR ---
CALLED MD REPORTED CONCERNS FOR RISK OF FALLS, AND HARM TO SELF WITH HER INCREASE IN CONFUSION AND IMPULSIVENESS. ORDER OBTAINED FOR ZYPREXIA 4MG ONE TIME DOSE.
--- NOTE | 2019-05-14 05:16 | NUR ---
SHIFT SUMMARY: RICHI IS A 83 Y/O FEMALE WHO HAS BEEN PLEASANTLY CONFUSED ALL NIGHT LONG. SHE HAS BEEN UP AND DOWN THROUGHOUT THE NIGHT YELLING OUT FOR HER AND DAUGHTER, CONFUSED ABOUT PLACE AND TIME. TRYING TO GET UP OUT OF BED, WITH SUCCESS A COUPLE OF TIMES, SHE IS VERY UNSTEADY ON HER FEET AND HIGH FALL RISK. AT THE BEGINNING OF THE SHIFT MELATONIN WAS GIVEN WITH DID NOT EFFECT HER THEREFORE CALLED MD AND GOT ONE TIME ORDER FOR ZYPREXIA. THIS HELPED TO CALM HER A LITTLE BUT STILL WAS VERY IMPULSIVE WITH GETTING IN AND OUT OF HER BED, PULLING OFF HER CLOTHING, BLANKETS, BUT STARTED TO COMPLAIN OF HEADACHE. THIS WAS KEEPING HER FROM RESTING SHE COMPLAINED OF HEADACHE REALLY BAD. CALLED MD AGAIN AND ORDERED TYLENOL WHICH WAS GIVEN. SHE SLEPT FOR A FEW HOURS AFTER THAT TILL SHE WOKE UP AGAIN AND STARTED TO BE RESTLESS IN HER BED. PILLS WERE TAKEN WITH APPLESAUCE. SHE WAS A 1-2 PERSON ASSIST TO THE BSC. NO OTHER CHANGES WERE NOTED THIS SHIFT. WILL REPORT TO DAY SHIFT RN.
[2019-05-14 05:25] LABS: Anion Gap 5 mmol/L (6-16); Blood Urea Nitrogen 5 mg/dL (8-24); CO2, Blood 25 mmol/L (21-32); Calcium, Blood 7.3 mg/dL (8.5-10.1); Chloride, Blood 114 mmol/L (98-108); Creatinine, Blood 0.71 mg/dL (0.40-1.00); Glomerular Filtration Rate >60 (60-); Glucose, Blood 105 mg/dL (70-99); Phosphorus, Blood 1.6 mg/dL (2.5-4.9); Potassium, Blood 2.8 mmol/L (3.5-5.5); Sodium, Blood 144 mmol/L (136-145)
--- NOTE | 2019-05-14 14:10 | NUR ---
AWARE OF POTASSIUM LEVEL OF 2.8. MEDS ORDERED.
--- NOTE | 2019-05-14 18:24 | NUR ---
SHIFT SUMMARY PATIENT HAS COMPLAINED OF GENERALIZED DISCOMFORT AND A HEADACHE OFF AND ON TODAY. SHE HAS SLEPT AND HAS BEEN UP IN CHAIR THIS SHIFT. THIS EVENING AROUND 1814 SHE HAS BECAME INCREASINGLY MORE CONFUSED STATING SHE NEEDS SHORTS TO DO THESE ACTIVITIES. CONTINUES TO FOLLOW INSTRUCTIONS. CURRENTLY IN BED.
--- NOTE | 2019-05-15 03:59 | NUR ---
SHIFT SUMMARY: 83 Y/O OBESE FEMALE RESTED COMFORTABLY ALL SHIFT, DENIES PAIN OR NAUSEA, BED ALARM APPLIED, BED LOW POSITION, CALL LIGHT AT SIDE.
[2019-05-15 05:38] LABS: BASOPHILS ABSOLUTE AUTO 0.03 K/mm3 (0.00-0.23); BASOPHILS PERCENT AUTO 1 % (0-2); EOSINOPHILS PERCENT AUTO 4 % (0-6); Hematocrit 25.3 % (33.0-51.0); Hemoglobin 7.8 g/dL (11.5-16.0); IMMATURE GRAN ABSOLUTE AUTO 0.02 K/mm3 (0.00-0.10); IMMATURE GRAN PERCENT AUTO 0 % (0-1); LYMPHOCYTES ABSOLUTE AUTO 1.11 K/mm3 (0.84-5.20); LYMPHOCYTES PERCENT AUTO 23 % (21-46); MONOCYTES ABSOLUTE AUTO 0.75 K/mm3 (0.16-1.47); MONOCYTES PERCENT AUTO 16 % (4-13); Mean Corpuscular HGB 28.7 pg (26.0-34.0); Mean Corpuscular HGB Conc 30.8 g/dL (31.5-36.5); Mean Corpuscular Volume 93 fL (80-100); Mean Platelet Volume 10.1 fL (9.1-12.4); NEUTROPHILS ABSOLUTE AUTO 2.63 K/mm3 (1.96-9.15); NEUTROPHILS PERCENT AUTO 56 % (41-73); NRBC ABSOLUTE 0.03 K/mm3 (0.00-0.02); NRBC Auto 0.6 /100 WBC (0.0-0.2); Platelet Count 185 K/mm3 (150-400); RDW Coefficient Variation 17.2 % (11.7-14.2); RDW Standard Deviation 56.5 fL (35.1-46.3); Red Blood Cell Count 2.72 M/mm3 (3.80-5.20); White Blood Cell Count 4.74 K/mm3 (4.00-11.30)
[2019-05-15 05:58] LABS: Anion Gap 7 mmol/L (6-16); Blood Urea Nitrogen 9 mg/dL (8-24); Bun/Creatinine Ratio 11.6 (12.0-20.0); CO2, Blood 24 mmol/L (21-32); Calcium, Blood 8.2 mg/dL (8.5-10.1); Chloride, Blood 114 mmol/L (98-108); Creatinine, Blood 0.77 mg/dL (0.40-1.00); Glomerular Filtration Rate >60 (60-); Glucose, Blood 116 mg/dL (70-99); Potassium, Blood 3.4 mmol/L (3.5-5.5); Sodium, Blood 145 mmol/L (136-145)
--- NOTE | 2019-05-15 10:22 | NUR ---
THIS AM NOTIFIED DR FRANKLIN OF LOW HBG AND POTASSIUM LEVELS. 40 MEQ OF POTASSIUM GIVENM PER DOCTOR'S ORDER. DOCTOR STATES SHE WILL BE IN TO ASSESS PT SHORTLY.
--- NOTE | 2019-05-15 18:11 | NUR ---
PT UP TO CHAIR FOR MEALS TODAY. TOLERATED BED BATH WELL. C/O HEADACHE MEDICATED PER EMAR. PT NOTED TO HAVE SUNDOWNING AROUND 1800. NO ACUTE CHANGES NOTED.
--- NOTE | 2019-05-15 18:33 | NUR ---
SHIFT SUMMARY PATIENT BEGINNING TO ACTIVELY SUNDOWN. DETERMINED TO PUT ON HER CLOTHES FROM HOME. GETTING UP IMPUSLIVELY. DIFFICULT TO REDIRECT.
--- NOTE | 2019-05-16 04:05 | NUR ---
SHIFT SUMMARY: 83 Y/O OBESE FEMALE HAD RESTLESS NIGHT, ALERT TO PERSON ONLY, YELLING OUT FREQUENTLY AND UNABLE TO STAY IN BED OR CHAIR, SOCORRO VEST APPLIED FOR SAFETY, BED ALARM APPLIED, BED LOW POSITION, CALL LIGHT AT SIDE.
[2019-05-16 05:21] LABS: Anion Gap 9 mmol/L (6-16); Blood Urea Nitrogen 16 mg/dL (8-24); Bun/Creatinine Ratio 20.8 (12.0-20.0); CO2, Blood 20 mmol/L (21-32); Calcium, Blood 8.5 mg/dL (8.5-10.1); Chloride, Blood 114 mmol/L (98-108); Creatinine, Blood 0.77 mg/dL (0.40-1.00); Glomerular Filtration Rate >60 (60-); Glucose, Blood 127 mg/dL (70-99); Potassium, Blood 3.6 mmol/L (3.5-5.5); Sodium, Blood 143 mmol/L (136-145)
[2019-05-16 05:27] LABS: BASOPHILS ABSOLUTE AUTO 0.04 K/mm3 (0.00-0.23); BASOPHILS PERCENT AUTO 1 % (0-2); EOSINOPHILS ABSOLUTE AUTO 0.15 K/mm3 (0.00-0.68); EOSINOPHILS PERCENT AUTO 3 % (0-6); Hematocrit 27.5 % (33.0-51.0); Hemoglobin 8.3 g/dL (11.5-16.0); IMMATURE GRAN ABSOLUTE AUTO 0.02 K/mm3 (0.00-0.10); IMMATURE GRAN PERCENT AUTO 0 % (0-1); LYMPHOCYTES ABSOLUTE AUTO 1.34 K/mm3 (0.84-5.20); LYMPHOCYTES PERCENT AUTO 24 % (21-46); MONOCYTES ABSOLUTE AUTO 0.84 K/mm3 (0.16-1.47); MONOCYTES PERCENT AUTO 15 % (4-13); Mean Corpuscular HGB 28.4 pg (26.0-34.0); Mean Corpuscular HGB Conc 30.2 g/dL (31.5-36.5); Mean Corpuscular Volume 94 fL (80-100); Mean Platelet Volume 9.6 fL (9.1-12.4); NEUTROPHILS ABSOLUTE AUTO 3.29 K/mm3 (1.96-9.15); NEUTROPHILS PERCENT AUTO 58 % (41-73); NRBC ABSOLUTE 0.03 K/mm3 (0.00-0.02); NRBC Auto 0.5 /100 WBC (0.0-0.2); Platelet Count 183 K/mm3 (150-400); RDW Coefficient Variation 16.8 % (11.7-14.2); Red Blood Cell Count 2.92 M/mm3 (3.80-5.20); White Blood Cell Count 5.68 K/mm3 (4.00-11.30)
--- NOTE | 2019-05-16 17:22 | NUR ---
SHIFT SUMMARY: PT IS A/O TO SELF AND WELL PLACE OF . SHE DID C/O HEADACHE PAIN X2 TODAY FOR WHICH TYLENOL WAS GIVEN AND EFFECTIVE BOTH TIMES. PT SOCORRO VEST WAS REMOVED THIS MORNING. PT DOES CONTINUE TO HAVE POOR SAFETY AWARENESS AND NEEDS FREQUENT REDIRECTION BUT CAN FOLLOW DIRECTIONS EASILY. PT HAS BEEN A X 1 ASSIST TO THE TOILET THIS SHIFT. MEN'S GOLF COACH ASSISTED PT IN THE SHOWER TODAY. PT HAS BEEN BACK AND FORTH FROM THE BED TO THE CHAIR ALL DAY. PT IS ABLE TO MAKE HER NEEDS KNOWN BUT DOES NOT USE HER CALL LIGHT BUT INSTEAD YELLS OUT FOR HELP. PT HAS BEEN UP TO CHAIR FOR HER MEALS AND HAS A GOOD APPETITE.
--- NOTE | 2019-05-17 05:03 | NUR ---
SHIFT SUMMARY PT ADMITTED FOR GI BLEED AND ACUTE CVA. SHE IS ON A REGULAR DIET AND TAKES MEDICATIONS WHOLE. SHE HAS BEEN ORIENTED TO SELF ONLY THROUGHOUT THE NIGHT AND OCCASIONALLY NEEDS REDIRECTING. PT EXPRESSED FEAR OF FALLING WHEN TRANSFERRING TO BATHROOM, SO BEDSIDE COMMODE INITIATED. WILL CONTINUE TO MONITOR.
--- NOTE | 2019-05-17 17:37 | NUR ---
SHIFT SUMMARY: PT IS ALERY AND ORIENTED TO HERSELF AND SITUATION TODAY. SHE CONTINUES TO C/O HEADACHE PAIN AND TYLENOL WAS GIVEN ORDERED. PT WORKED WITH THERAPIES TODAY AND IS ABLE TO TRANSFER A X1 ASSIST FROM THE BED TO THE CHAIR. PT CAME AND VISITED TODAY AND STATED SHE WILL NEED TO BE MUCH STRONGER BEFORE RETURNING HOME WITH HIM HE CANNOT LIFT HER. PT IS ABLE TO MAKE HER EEDS KNOWN BUT CALLS OUT INSTEAD OF USING THE CALL LIGHT.
--- NOTE | 2019-05-18 04:44 | NUR ---
SHIFT SUMMARY PT REPORTED PAIN IN HER HEAD, BACK AND NECK THROUGHOUT THE NIGHT. I REPOSITIONED HER, USED A HEATING PAD, HELPED HER GET OUT OF THE BED AND INTO A CHAIR, HELPED HER TO THE COMMODE, AND GAVE HER TYLENOL (SEE EMAR). SHE WAS ABLE TO GET SOME REST, BUT HAD SOME AGITATION AND PERIODS OF TRYING TO GET OUT OF BED. SHE WAS ABLE TO BE REDIRECTED BUT NOT RIGHT AWAY. SHE HAD AN HIGH BP AT 0229, BUT SHE WAS AGITATED AT THIS TIME AND HAD JUST GOTTEN BACK INTO THE BED. WILL CONTINUE TO MONITOR.
[2019-05-18] MEDS ORDERED: HYDR1TAB94 PO (10:23)
--- NOTE | 2019-05-18 12:35 | NUR ---
SHIFT SUMMARY PT AWAKE THIS AM, SITTING IN CHAIR WAITING FOR BREAKFAST. FLAT AFFECT. DOES NOT USE CALL LT, BUT WILL YELL OUT FOR NEEDS. WAS ABLE TO FEED HERSELF W/O DIFFICULTY. C/O PAIN TO NECK; TYLENOL GIVEN. PT CONTINUED TO C/O PAIN, DR PARKS TO TO SEE PT; REQUESTED PAIN MEDICATION. NEW ORDERS RECEIVED. PER SHIFT REPORT, PT HAD BEEN ON NORCO 10/325 BID BUT DID NOT HAVE IT ORDERED AND HAD BEEN C/O HEADACHES POSSIBLY D/T W/D. PT SEEMED TO BE IN MUCH LESS PAIN AFTER NORCO GIVEN. PT WAS ABLE TO TAKE A NAP AND THEN MOVE AROUND W/O COMPLAINTS. PT ABLE TO WORK WITH P/T AND O/T. D/C ORDERS PLACED. PT TX TO VIA W/C @ 11:30.
== END 2019-05-18 11:43 | DRG 64 ==
LOC: ER 12:08 → ICUW 13:49 → ICUE 13:49 → MEDS 05-13 18:40 → ENPENDDIS 05-18 08:43 → MEDS 05-18 11:43
PROVIDERS: Emergency Medicine; Internal Medicine; Internal Medicine Gastroenterology; ADMIT Family Medicine
PROC: 30233N1 Transfusion of Nonautologous Red Blood Cells into Peripheral Vein, Percutaneous Approach (ICD-10-PCS; principal; 2019-05-10)
PROC: 0DB58ZX Excision of Esophagus, Via Natural or Artificial Opening Endoscopic, Diagnostic (ICD-10-PCS; 2019-05-11)
PROC: 0DBH8ZX Excision of Cecum, Via Natural or Artificial Opening Endoscopic, Diagnostic (ICD-10-PCS; 2019-05-12)
PROC: 0W3P8ZZ Control Bleeding in Gastrointestinal Tract, Via Natural or Artificial Opening Endoscopic (ICD-10-PCS; 2019-05-12)
DX: I63.9 Cerebral infarction, unspecified (principal); K55.21 Angiodysplasia of colon with hemorrhage; K25.4 Chronic or unspecified gastric ulcer with hemorrhage; I50.31 Acute diastolic (congestive) heart failure; D62 Acute posthemorrhagic anemia; I13.0 Hypertensive heart and chronic kidney disease with heart failure and stage 1 through stage 4 chronic kidney disease, or unspecified chronic kidney disease; G47.33 Obstructive sleep apnea (adult) (pediatric); E78.5 Hyperlipidemia, unspecified; K21.9 Gastro-esophageal reflux disease without esophagitis; F03.90 Unspecified dementia, unspecified severity, without behavioral disturbance, psychotic disturbance, mood disturbance, and anxiety; F41.9 Anxiety disorder, unspecified; Z96.653 Presence of artificial knee joint, bilateral; Z96.643 Presence of artificial hip joint, bilateral; N18.3 Chronic kidney disease, stage 3 (moderate); E87.6 Hypokalemia; E83.39 Other disorders of phosphorus metabolism; K44.9 Diaphragmatic hernia without obstruction or gangrene; D12.0 Benign neoplasm of cecum; K57.90 Diverticulosis of intestine, part unspecified, without perforation or abscess without bleeding; Z79.02 Long term (current) use of antithrombotics/antiplatelets
CPT/HCPCS: 36415; 36430; 51702; 70450; 71045; 80048; 80053; 80061; 80069; 81001; 82607; 82728; 82746; 83540; 83550; 83735; 84100; 84132; 85014; 85018; 85025; 85610; 86850; 86900; 86901; 86923; 87081; 87086; 88305; 93005; 93010; 93306; 93880; 96374; 97110; 97163; 97166; 97530; 97535; 99285-25; A9270; A9270-GY; C1751; C9113; J1940; J2370; J2704; J3010; J3480; J7030; J7050; J7060; J7120; P9016

== ENCOUNTER 2019-09-10 13:18 | Observation (INO) | payer MEDICARE, OTHER ==
[~2019-09-10] VITALS: Ht 172.7 cm; Wt 92.5 kg
[~2019-09-10 13:18] MED LIST changes: +BACL10; -CHOL10002 PO; +Excedrin Extra1 EACH PO; +HYDR1TAB94 PO; +LOSA50 PO; -LOSARTAN POTAS100 MG PO; +MEMA5TAB PO; +Oyster Shell C500 MG PO; +POTA10T PO; +TIZA4 PO; +VITAMIN D32000 UNI3 PO
[2019-09-10 13:53] LABS: BASOPHILS ABSOLUTE AUTO 0.03 K/mm3 (0.00-0.23); BASOPHILS PERCENT AUTO 1 % (0-2); EOSINOPHILS ABSOLUTE AUTO 0.07 K/mm3 (0.00-0.68); EOSINOPHILS PERCENT AUTO 1 % (0-6); Hematocrit 37.3 % (33.0-51.0); Hemoglobin 11.9 g/dL (11.5-16.0); IMMATURE GRAN ABSOLUTE AUTO 0.01 K/mm3 (0.00-0.10); IMMATURE GRAN PERCENT AUTO 0 % (0-1); LYMPHOCYTES ABSOLUTE AUTO 1.58 K/mm3 (0.84-5.20); LYMPHOCYTES PERCENT AUTO 28 % (21-46); MONOCYTES ABSOLUTE AUTO 0.74 K/mm3 (0.16-1.47); MONOCYTES PERCENT AUTO 13 % (4-13); Mean Corpuscular HGB 29.3 pg (26.0-34.0); Mean Corpuscular HGB Conc 31.9 g/dL (31.5-36.5); Mean Corpuscular Volume 92 fL (80-100); Mean Platelet Volume 9.9 fL (9.1-12.4); NEUTROPHILS ABSOLUTE AUTO 3.28 K/mm3 (1.96-9.15); NEUTROPHILS PERCENT AUTO 57 % (41-73); Platelet Count 200 K/mm3 (150-400); RDW Coefficient Variation 25.6 % (11.7-14.2); RDW Standard Deviation 85.5 fL (35.1-46.3); Red Blood Cell Count 4.06 M/mm3 (3.80-5.20); White Blood Cell Count 5.71 K/mm3 (4.00-11.30)
[2019-09-10] MEDS ORDERED: BACL10 PO (14:02)
[2019-09-10 14:10] LABS: Alanine Aminotransfer (ALT/SGP 26 U/L (12-78); Albumin, Blood 3.9 g/dL (3.4-5.0); Albumin/Globulin Ratio 1.1 (0.8-1.8); Alk Phos 40 U/L (50-136); Anion Gap 10 mmol/L (6-16); Aspartate Aminotrans (AST/SGOT 16 U/L (12-37); Bilirubin, Total 0.4 mg/dL (0.1-1.0); Blood Urea Nitrogen 29 mg/dL (8-24); CO2, Blood 27 mmol/L (21-32); Calcium, Blood 9.6 mg/dL (8.5-10.1); Chloride, Blood 107 mmol/L (98-108); Globulin, Blood 3.7 g/dL (2.2-4.0); Glomerular Filtration Rate 56 (60-); Glucose, Blood 102 mg/dL (70-99); Potassium, Blood 4.2 mmol/L (3.5-5.5); Sodium, Blood 144 mmol/L (136-145); Total Protein, Blood 7.6 g/dL (6.4-8.2); Troponin I <0.015 ng/mL (0.000-0.040)
[2019-09-10 14:24] LABS: International Normalized Ratio 1.09; Prothrombin Time Results 11.6 Sec (9.7-11.5)
[2019-09-10] MEDS ORDERED: Norco 5-325 Ta1 EACH PO (18:18)
[2019-09-10] MEDS ORDERED: ABAT250V (18:20)
[2019-09-10] MEDS ORDERED: POLYETHYLENE G500 G1 PO (18:20)
[2019-09-11 01:52] LABS: Hematocrit 37.3 % (33.0-51.0); Mean Corpuscular HGB 29.2 pg (26.0-34.0); Mean Corpuscular HGB Conc 32.2 g/dL (31.5-36.5); Mean Corpuscular Volume 91 fL (80-100); Mean Platelet Volume 10.5 fL (9.1-12.4); Platelet Count 193 K/mm3 (150-400); RDW Coefficient Variation 25.5 % (11.7-14.2); RDW Standard Deviation 83.6 fL (35.1-46.3); Red Blood Cell Count 4.11 M/mm3 (3.80-5.20); White Blood Cell Count 5.45 K/mm3 (4.00-11.30)
[2019-09-11 01:53] LABS: Anion Gap 9 mmol/L (6-16); Blood Urea Nitrogen 25 mg/dL (8-24); Bun/Creatinine Ratio 27.3 (12.0-20.0); CO2, Blood 27 mmol/L (21-32); Calcium, Blood 9.2 mg/dL (8.5-10.1); Chloride, Blood 108 mmol/L (98-108); Creatinine, Blood 0.92 mg/dL (0.40-1.00); Glomerular Filtration Rate >60 (60-); Glucose, Blood 119 mg/dL (70-99); Potassium, Blood 3.3 mmol/L (3.5-5.5); Sodium, Blood 144 mmol/L (136-145); Troponin I <0.015 ng/mL (0.000-0.040)
--- NOTE | 2019-09-11 05:30 | NUR ---
SHIFT SUMMARY PT IS AN 89 Y/O FEMALE, ADMITTED FOR UTI. SHE IS A&O X 1, AND [place]. PT IS ON BEDREST, TURN Q2H AND INCONTINENT. PT DENIED ANY COMPLAINTS OF NAUSEA, ACUTE SOB OR PAIN, AND SLEPT WELL DURING THE NIGHT. VITAL SIGNS STABLE. NO ACUTE CHANGES IN PT CONDITION NOTED DURING THE NIGHT. WILL CONTINUE TO MONITOR AND TREAT PER EMAR UNTIL HAND OFF TO DAY SHIFT RN.
--- NOTE | 2019-09-11 07:18 | NUR ---
SHIFT SUMMARY PT IS AN 84 Y/O FEMALE, ADMITTED FOR CP. SHE IS A&O X SELF AND FAMILY ONLY. PT BECAME VERY AGITATED AND CONFUSED DURING THE NIGHT, TRYING TO GET OUT OF BED AND LEAVE THE HOSPITAL TO "GO GET MY ". PT WAS REPEATEDLY REORIENTED AND REMINDED THAT SHE WAS IN THE HOSPITAL, BUT CONTINUED TO TRY AND GET UP. WHEN STAFF TRIED TO STOP HER FROM LEAVING, PT GOT AGGRESSIVE AND AGITATED AND STARTED SWINGING AT STAFF. PT IS WEAK, AND UNABLE TO AMBULATE SAFELY, AND WAS PUT IN A SOCORRO VEST RESTRAINT FOR PT'S SAFETY WELL A OT DOSE OF IM GEODON PER DR SUAREZ FOR AGITATION. SHE WAS MEDICATED ONCE IN THE AM FOR PAIN IN HER BLE. NO COMPLAINTS OF CHEST PAIN, NAUSEA OR SOB. TELE SHOWED SB IN THE 50S WITH A FDB PER LEGAL CONSULTANT. PT'S BP WAS ELEVATED AT EVENING VITALS AT 178/87. PT WAS MEDICATED WITH PO HOME MEDS, AND IT CAME DOWN TO 147/79 BY AM VITALS. NO OTHER ACUTE CHANGES IN PT CONDITION NOTED DURING THE NIGHT. WILL CONTINUE TO MONITOR AND TREAT PER EMAR UNTIL HAND OFF TO DAY SHIFT RN.
--- NOTE | 2019-09-11 10:09 | NUR ---
DR. TRAVIS CONTACT CALLED/SPOKE WITH DR. TRAVIS ADVISED OF STRIP READING. DR. TRAVIS REQUESTED STRIP BE PLACED IN CHART. NO NEW ORDERS. STRIP PLACED IN CHART.
--- NOTE | 2019-09-11 18:12 | NUR ---
SHIFT SUMMARY PATIENT A/O X 2. CALL LIGHT IN REACH. PATIENT BEGAN DAY IN RESTRAINTS, REMOVED UPON BEGINNING SHIFT. PATIENT DEMENTIA AT BASELINE, CONFUSION. PATIENT REMOVED IV TODAY. PATIENT ON TELEMETRY AND REPORTS OF TELE PROVIDED TO DR. TRAVIS. PATIENT AMBULATED IN [place]IR[place]DA WITH FWW AND ASSISTANCE OF TWO STAFF MEMBERS.
[2019-09-12 05:17] LABS: Bun/Creatinine Ratio 30.8 (12.0-20.0); Calcium, Blood 8.6 mg/dL (8.5-10.1); Creatinine, Blood 1.07 mg/dL (0.40-1.00); Potassium, Blood 3.8 mmol/L (3.5-5.5)
--- NOTE | 2019-09-12 06:16 | NUR ---
SHIFT SUMMARY PT IS A 84 Y/O FEMALE, ADMITTED FOR CHEST PAIN, SHE IS A&O X SELF AND FAMILY, AND A 1PA UP TO THE BATHROOM. PT WAS MEDICATED ONCE FOR BACK PAIN WITH PRN HYDROCODONE. NO COMPLAINTS OF NAUSEA OR SOB. PT SLEPT WELL DURING THE NIGHT. VITAL SIGNS STABLE. NO ACUTE CHANGES IN PT CONDITION NOTED. WILL CONTINUE TO MONITOR AND TREAT PER EMAR UNTIL HAND OFF TO DAY SHIFT RN.
--- NOTE | 2019-09-12 13:03 | NUR ---
dr. vallecillo contact regarding patient reliance on miralax for bowel movements. she will enter new orders for patient.
--- NOTE | 2019-09-12 14:32 | NUR ---
Spoke with pt and on 09/12/2019, agreed to [facility] care on 09/13/2019.
--- NOTE | 2019-09-12 15:22 | NUR ---
patient dressed in street clothes. wheeled out via w/c to husbands vehicle. discharge instructions given to . iv removed.
--- NOTE | 2019-09-12 15:37 | NUR ---
DISCHARGE LN ORIENTING THIS RN COMPLETED D/C FOR PATIENT.
== END 2019-09-12 15:10 | disposition home health service (06) ==
LOC: ER 13:18 → MEDS 13:19
PROVIDERS: Emergency Medicine; Internal Medicine; Nurse Practitioner Acute Care; Physician Assistant; ADMIT Internal Medicine
DX: R07.9 Chest pain, unspecified (principal); I47.1 Supraventricular tachycardia; I13.0 Hypertensive heart and chronic kidney disease with heart failure and stage 1 through stage 4 chronic kidney disease, or unspecified chronic kidney disease; N18.9 Chronic kidney disease, unspecified; I50.42 Chronic combined systolic (congestive) and diastolic (congestive) heart failure; F03.90 Unspecified dementia, unspecified severity, without behavioral disturbance, psychotic disturbance, mood disturbance, and anxiety; E87.6 Hypokalemia; G89.4 Chronic pain syndrome; G47.33 Obstructive sleep apnea (adult) (pediatric); I49.3 Ventricular premature depolarization; Z88.6 Allergy status to analgesic agent; Z79.899 Other long term (current) drug therapy; Z79.82 Long term (current) use of aspirin
CPT/HCPCS: 36415; 71045; 80048; 80053; 83735; 83880; 84484; 85025; 85027; 85610; 85730; 93005; 93010; 96361; 96372; 96374; 97110; 97116; 97162; 97165; 97535; 99285-25; A9270; A9270-GY; G0378; J1940; J3486; J7030; J7060

== ENCOUNTER 2019-09-15 03:37 | Inpatient (IN) | payer MEDICARE, OTHER ==
[~2019-09-15] VITALS: Ht 170.2 cm; Wt 94.4 kg
[~2019-09-15 03:37] MED LIST changes: +ABAT250V; +Norco 5-325 Ta1 EACH PO; +POLYETHYLENE G500 G1 PO
[2019-09-15 04:09] LABS: PCO2 Arterial 43.5 mmHg (35-45); PO2 Arterial 68.7 mmHg (80-100); pH Blood Arterial 7.39 (7.35-7.45)
[2019-09-15 04:25] LABS: BASOPHILS ABSOLUTE AUTO 0.03 K/mm3 (0.00-0.23); BASOPHILS PERCENT AUTO 1 % (0-2); EOSINOPHILS ABSOLUTE AUTO 0.12 K/mm3 (0.00-0.68); EOSINOPHILS PERCENT AUTO 3 % (0-6); Hematocrit 35.1 % (33.0-51.0); Hemoglobin 11.1 g/dL (11.5-16.0); IMMATURE GRAN ABSOLUTE AUTO 0.01 K/mm3 (0.00-0.10); IMMATURE GRAN PERCENT AUTO 0 % (0-1); LYMPHOCYTES ABSOLUTE AUTO 1.86 K/mm3 (0.84-5.20); LYMPHOCYTES PERCENT AUTO 39 % (21-46); MONOCYTES ABSOLUTE AUTO 0.73 K/mm3 (0.16-1.47); MONOCYTES PERCENT AUTO 15 % (4-13); Mean Corpuscular HGB 29.8 pg (26.0-34.0); Mean Corpuscular HGB Conc 31.6 g/dL (31.5-36.5); Mean Platelet Volume 10.5 fL (9.1-12.4); NEUTROPHILS ABSOLUTE AUTO 2.03 K/mm3 (1.96-9.15); NEUTROPHILS PERCENT AUTO 43 % (41-73); Platelet Count 178 K/mm3 (150-400); RDW Coefficient Variation 24.8 % (11.7-14.2); Red Blood Cell Count 3.72 M/mm3 (3.80-5.20); White Blood Cell Count 4.78 K/mm3 (4.00-11.30)
[2019-09-15 04:26] LABS: Mean Corpuscular Volume 94 fL (80-100)
[2019-09-15 04:47] LABS: Alanine Aminotransfer (ALT/SGP 25 U/L (12-78); Albumin, Blood 3.7 g/dL (3.4-5.0); Alk Phos 34 U/L (50-136); Anion Gap 5 mmol/L (6-16); Aspartate Aminotrans (AST/SGOT 13 U/L (12-37); Bilirubin, Total 0.8 mg/dL (0.1-1.0); Blood Urea Nitrogen 34 mg/dL (8-24); Bun/Creatinine Ratio 38.8 (12.0-20.0); CO2, Blood 25 mmol/L (21-32); Calcium, Blood 9.1 mg/dL (8.5-10.1); Chloride, Blood 110 mmol/L (98-108); Creatinine, Blood 0.88 mg/dL (0.40-1.00); Globulin, Blood 3.8 g/dL (2.2-4.0); Glomerular Filtration Rate >60 (60-); Glucose, Blood 106 mg/dL (70-99); Potassium, Blood 3.9 mmol/L (3.5-5.5); Sodium, Blood 140 mmol/L (136-145); Total Protein, Blood 7.5 g/dL (6.4-8.2); Troponin I <0.015 ng/mL (0.000-0.040)
--- NOTE | 2019-09-15 07:25 | NUR ---
Pt admitted to floor from the ED with Dx Acute Diastolic Heart Failure and SOB. accompanied her to floor. Was able to pivot to the bed from the gurney, HOB elevated, lungs diminished. ED RN voiced pt had a breathing treatment in the ED, and has been satting in the 90's. answered most of questions as pt is hard of hearing. Oriented to call light, rails up x 3. Placed on [employer]. - JCRN
--- NOTE | 2019-09-15 12:21 | NUR ---
HEADACHE PT C/O HEADACHE, ORDER RECEIVED PER EMAR FROM DR. TRAVIS.
[2019-09-15 13:10] LABS: CPK Creatine Kinase 38 U/L (26-193); Troponin I <0.015 ng/mL (0.000-0.040)
--- NOTE | 2019-09-15 14:17 | NUR ---
Patient very anxious at this time wanting someone in the room with her at all times. Pt stating she "can't breathe" however saturations remains > 95%. Order recieved per EMAR from Dr. Bedolla
--- NOTE | 2019-09-15 16:22 | NUR ---
HYPERTENSION, PAIN, CONSTIPATION PATIENT'S (KASEY) IS CONCERNED PT IS NOT GETTING ADEQUATE PAIN RELIEF D/T EMAR ORDERS REFLECTING BID INSTEAD OF TID. THIS RN CALLED [facility] AND SPOKE WITH AMOR FOR WHICH SHE CONFIRMED FREQUENCY IS TID. DR. TRAVIS INFORMED AND HYDROCODONE CHANGED TO TID FROM BID. ANOTHER CONCERN IS CONSTIPATION FOR WHICH MIRALAX IS NOW CHANGED TO BE SCHEDULED DAILY. BP 185/89, PER ORDERS FROM DR. TRAVIS, APRESOLINE CHANGED TO Q4P.
--- NOTE | 2019-09-15 17:54 | NUR ---
Shift Summary A/Ox2 to self and place. Patient has been c/o FRANCISCO and neck pain for which this RN has medicated x 3. Pt has been up in chair for all meals. Medicated for anxiety x 1. states patient often has sundowners as soon as afternoon hits. Pt has had 2 MED brown bowel movements today, continent. Medicated for SBP >160 x 2 with prn Apresoline (see vitals charting). Pt confused and shouting "Please help me" for most of the day, has been in and out of bed frequently with 1 assist to bathroom and to/from chair. Will continue to monitor. Bed alarm on for safety.
--- NOTE | 2019-09-15 20:35 | NUR ---
PT OUT OF BED SEVERAL TIMES, VERY UNSTEADY, HIGH FALL RISK. NON RECEPTIVE TO REDIRECTION. CALL PLACED TO COMPUTER PROGRAMMER FOR ORDERS FOR A VEST FOR SAFETY. SEE ORDERS AND CORRESPONDING DETAILS. - JCRN
[2019-09-15 20:47] LABS: CPK Creatine Kinase 41 U/L (26-193); Troponin I <0.015 ng/mL (0.000-0.040)
--- NOTE | 2019-09-15 22:23 | NUR ---
CALLING OUT NEEDING TO VOID, SEVERAL ATTEMPTS WITH USE OF COMMODE, UNABLE TO VOID. CALLS PLACED TO WAITER/WAITRESS CABIN CLASS, ORDERS FOR BLADDER SCAN AND STR8 CATH OBTAINED (SEE ORDERS), BLADDER SCN OVER 600 CC. FEMALE NURSE STRAIGHT CATHED PT. SEE I AND O.
--- NOTE | 2019-09-16 02:46 | NUR ---
PAIN MED AND MUSCLE RELAXANT GIVEN EARLIER - SEE OCT FOR DETAILS. AGITATION WAS CALMED SOME WITH STAFF SITTING WITH PT BUT SUDDENLY ELECTRONIC HEAT SEAL OPERATOR CALLED WITH PT IN SVT - SEE TELE STRIPS. RAPID RESPONSE WAS CALLED. MD NOTIFIED AND SINCE THE SVT WAS NOT SUSTAINED, WAS ORDERED TO WATCH. AGITATION CONTINUES TO FLARE AT TIMES. CALL PLACED TO MD FOR ANTI ANXIETY MED.
[2019-09-16 03:03] LABS: Hematocrit 37.8 % (33.0-51.0); Hemoglobin 12.1 g/dL (11.5-16.0); Mean Corpuscular HGB 29.4 pg (26.0-34.0); Mean Corpuscular Volume 92 fL (80-100); Mean Platelet Volume 9.9 fL (9.1-12.4); Platelet Count 175 K/mm3 (150-400); RDW Coefficient Variation 24.6 % (11.7-14.2); RDW Standard Deviation 82.6 fL (35.1-46.3); Red Blood Cell Count 4.11 M/mm3 (3.80-5.20); White Blood Cell Count 4.75 K/mm3 (4.00-11.30)
[2019-09-16 03:18] LABS: Alanine Aminotransfer (ALT/SGP 26 U/L (12-78); Albumin, Blood 4.1 g/dL (3.4-5.0); Albumin/Globulin Ratio 1.1 (0.8-1.8); Alk Phos 39 U/L (50-136); Anion Gap 7 mmol/L (6-16); Aspartate Aminotrans (AST/SGOT 17 U/L (12-37); Bilirubin, Total 0.8 mg/dL (0.1-1.0); Blood Urea Nitrogen 28 mg/dL (8-24); Bun/Creatinine Ratio 30.8 (12.0-20.0); CO2, Blood 27 mmol/L (21-32); Calcium, Blood 9.3 mg/dL (8.5-10.1); Chloride, Blood 108 mmol/L (98-108); Creatinine, Blood 0.91 mg/dL (0.40-1.00); Globulin, Blood 3.9 g/dL (2.2-4.0); Glomerular Filtration Rate >60 (60-); Glucose, Blood 117 mg/dL (70-99); Potassium, Blood 3.3 mmol/L (3.5-5.5); Sodium, Blood 142 mmol/L (136-145)
--- NOTE | 2019-09-16 03:45 | NUR ---
SPOKE WITH DR ADDISON RE PT'S 2 MIN RUN OF BIGEMINAL PVC'S, PT IS NOW NSR WITH 1ST DEGREE BLOCK, FEW PVC'S AT 74 WHICH PER PCU SYSTEMS ADMINISTRATOR IS HER NORMAL. NO NEW ORDERS.
--- NOTE | 2019-09-16 05:11 | NUR ---
PT BACK IN THE 150 - 160'S VT, POST BIGEMINEY RUNS (SEE CORRESPONDING DOCS). CALL PLACED TO MD OUTER DIAMETER GRINDER (CYN), ORDERS RECEIVED TO TRANSFER TO HIGHER LEVEL OF CARE - PCU. CHANGE NURSE NOTIFIED.
--- NOTE | 2019-09-16 06:01 | NUR ---
IRREGULAR HEART RATES CONTINUED. CALL PLACED TO , ORDERS RECEIVED TO TRANSFER TO [facility]. PT TRANSFERRED TO ICU UNIT BUT PCU STATUS. KASEY NOTIFIED OF TRANSFER. VOICED "I GUESS CUTTING HER METAPROLOL DOSE IN HALF WASNT A GOOD IDEA I GUESS". ALL BELONGINGS SENT WITH PT. HOMA CAVAZOS ICU NURSE REPORTED TO.
--- NOTE | 2019-09-16 06:20 | NUR ---
TRANSFER IN PT ARRIVED TO ICU 1 AT 0600 VIA BED PCU STATUS. PT IS ALERT TO SELF ONLY. PT IS SPEAKING NONSENSICALLY AND IS UNABLE TO FOLLOW DIRECTIONS AT THIS TIME. PT IS ATTEMPTING TO GET OUT OF BED. PT WITH SOCORRO VEST IN PLACE. PT ON ROOM AIR. VITAL SIGNS STABLE WITH HR VARYING FROM 80'S IN NSR WITH PVC'S TO 160'S. NO ACUTE SIGNS OF DISTRESS NOTED. PT ASYMPTOMATIC OF HR CHANGES. IV SALINE LOCKED. ATTENDS IN PLACE. NO FAMILY AT BEDSIDE. WILL CONTINUE TO MONITOR AND REPORT OFF TO ONCOMING RN.
--- NOTE | 2019-09-16 07:20 | NUR ---
ASSUMED CARE AT 0700. REPORT FROM NOREEN CAVAZOS. PT RESTING IN BED. RESPONSES TO VERBAL STIMULI. A&OX 1. PT REPEATEDLY ASKING ABOUT "LADY IN KITCHEN" ATTEMPTED TO REORIENT. PT REQUESTING ROBE SO SHE CAN LEAVE. PT FOLLOWS SIMPLE COMMANDS. C/O FRANCISCO. DENIES OTHER COMPLAINTS. LUNGS DIMINISHED c CRACKLES IN BASES. TRACE EDEMA TO EXTREMITIES. VSS. OCCASIONAL PVCS. WILL CONTINUE TO MONITOR.
--- NOTE | 2019-09-16 13:00 | NUR ---
Initial palliative care consult: Ramsey is an 84 year old with a history of chronic diastolic heart failure, dementia, CKD stage 1, CVA, HTN, sleep apnea. She was [facility] to [facility] with CP, increasing SOB and HTN. She was recently admitted prior to this admission for CP and bradycardia. Ramsey [place] , Tony[place] Tony is at the bedside. He is her caregiver. He has been caring for her for the past 5 years and admits that he has seen a decline in her health during that time. He reports that she sleeps more during the day and wanders at night. He is afraid that she will wander out of the house and he won't know it. Discussed options for exit alarms for their house. He no longer is able to leave her alone because he worries that she will not be safe. Ramsey ambulates with a quad cane and is still able to feed herself. She has had a few falls in the past. They have [employer] [facility] set up and they have a bath aide to assist her with personal care. Tony reports they have a large extended family in the [facility] who are willing to help out when they are not at work. Tony does state that he knows there will be a time that it will become more and more difficult to care for her at home. Community resources booklet provided and discussed options of in home caregivers. Also encouraged him to reach out to [facility] social service director for additional support re: community resources. Ramsey did get up briefly to the chair to eat her lunch during the visit. She ate a small part of her lunch and c/o her head hurting and she wanted to go back to bed. She is a one person stand by assist with cueing to get back to bed from the chair. Tony reports her headache is chronic and she has an appointment with Dr. Jaicnto on 09/27/19 to address the headache with a procedure. Discussed POLST on file from 2016 and Tony confirms that the POLST on file in the EMR continues to reflect their wishes for Ramsey's care. PC will continue to follow for symptom management and advanced care planning as needed.
--- NOTE | 2019-09-16 17:01 | NUR ---
SHIFT SUMMARY PT A&OX 1. PT C/O FRANCISCO TODAY. RESTED WELL AFTER TAKING NORCO THIS AM. KASEY STATES THAT PT TAKES THIS TID, NOT PRN. ASSISTED TO BSC TWICE. ONE PERSON ASSIST TO CHAIR AND COMMODE. KASEY REPORTED SIMILAR EPISODES c HEARTRATE WHEN METOPROLOL DOSE WAS DECREASED IN THE PAST. CARDIOLOGY CONSULTED TODAY. NO RUNS OF SVT TODAY NOTED, OCCASIONAL PVCS. RATE 60-80'S THIS SHIFT. REPORT TO ONCOMING NURSE.
--- NOTE | 2019-09-16 18:37 | NUR ---
REPORT TO REEMA BENAVIDEZ RN. PT TRANSFERRED TO PCU, ALL BELONGINGS c PT.
[2019-09-17 04:24] LABS: Bun/Creatinine Ratio 29.4 (12.0-20.0); Calcium, Blood 8.6 mg/dL (8.5-10.1); Creatinine, Blood 1.02 mg/dL (0.40-1.00); Potassium, Blood 3.4 mmol/L (3.5-5.5)
[2019-09-17 04:31] LABS: Thyroid Stimulating Hormone 2.04 uIU/mL (0.360-4.800)
--- NOTE | 2019-09-17 05:45 | NUR ---
SHIFT SUMMARY PT SLEEPING IN ROOM COMFORTABLY AT THIS TIME. NO ACUTE CHANGES IN STATUS T/O NIGHT. PT CONTINUED TO BE CONFUSED AT TIMES. A/O TO SELF AND IMMEDIDATE SURROUNDINGS ONLY. PT REPORT SHE KNOWS SHE IS IN A HOSPITAL, CANNOT STATE DATE OR CITY. RESP EVEN UNLABORED ONR A W/ SATS >92%. PT DENIED ANY CP OR SOB/ PT DID COMPLAIN OF FRANCISCO T/O MOST OF NIGHT, PT WAS MEDICATED PER EMAR FOR FRANCISCO PAIN. PT DENIED OTHER NEEDS. PT ABLE TO USE BSC W/ 1 PERS ASSIST AND 4WW. BED ALARM ON FOR SAFETY, W/ SIDE RAILS UP. CALL LIGHT IN REACH, PT DOES NOT REMEMBER TO USE CALL LIGHT WHEN NEEDING TO GET OUT OF BED. WILL GIVE REPORT ON TO ONCOMING RN.
--- NOTE | 2019-09-17 07:35 | NUR ---
PATIENT CARE ASSUMED.
--- NOTE | 2019-09-17 09:00 | NUR ---
PATIENT ASSISTED BACK TO BED WITH USE OF WALKER. COMPLAINS OF HEADACHE AND NECK PAIN, ADDRESSED THROUGH REPOSITIONING AND PAIN MEDICATION. WCTM.
--- NOTE | 2019-09-17 12:35 | NUR ---
ECHO AT BEDSIDE.
--- NOTE | 2019-09-17 12:52 | NUR ---
Echocardiogram completed.
--- NOTE | 2019-09-17 14:43 | NUR ---
[facility] CALLED AND STATED THEY WOULD PUT PACER IN PT THIS EVENING. PT'S HAS BEEN NOTIFIED.
--- NOTE | 2019-09-17 18:10 | NUR ---
PT TAKEN BY [facility] STAFF TO SOFTWARE WRITER. FAMILY AWARE AND AT BEDSIDE.
--- NOTE | 2019-09-17 19:30 | NUR ---
PATIENT COMPLAINED OF HEAD AND NECK PAIN OFF AND ON THROUGH DAY, CONTROLLED WITH DISTRACTION AND PAIN MEDICATIONS ORDERED. PATIENT TAKEN TO [facility] FOR PACEMAKER PLACEMENT TONIGHT, PATIENT EXPERIENCING SUNDOWNING AND WILL LIKELY NEED ARM TO BE SECURED POST-PROCEDURE.
[2019-09-18 04:15] LABS: BASOPHILS ABSOLUTE AUTO 0.03 K/mm3 (0.00-0.23); BASOPHILS PERCENT AUTO 0 % (0-2); EOSINOPHILS ABSOLUTE AUTO 0.09 K/mm3 (0.00-0.68); EOSINOPHILS PERCENT AUTO 1 % (0-6); Hematocrit 35.4 % (33.0-51.0); Hemoglobin 11.4 g/dL (11.5-16.0); IMMATURE GRAN ABSOLUTE AUTO 0.01 K/mm3 (0.00-0.10); IMMATURE GRAN PERCENT AUTO 0 % (0-1); LYMPHOCYTES ABSOLUTE AUTO 1.48 K/mm3 (0.84-5.20); LYMPHOCYTES PERCENT AUTO 21 % (21-46); MONOCYTES ABSOLUTE AUTO 0.74 K/mm3 (0.16-1.47); MONOCYTES PERCENT AUTO 10 % (4-13); Mean Corpuscular HGB 30.2 pg (26.0-34.0); Mean Corpuscular HGB Conc 32.2 g/dL (31.5-36.5); Mean Corpuscular Volume 94 fL (80-100); Mean Platelet Volume 11.3 fL (9.1-12.4); NEUTROPHILS ABSOLUTE AUTO 4.81 K/mm3 (1.96-9.15); NEUTROPHILS PERCENT AUTO 67 % (41-73); Platelet Count 173 K/mm3 (150-400); RDW Standard Deviation 81.6 fL (35.1-46.3); Red Blood Cell Count 3.78 M/mm3 (3.80-5.20); White Blood Cell Count 7.16 K/mm3 (4.00-11.30)
[2019-09-18 04:30] LABS: Anion Gap 4 mmol/L (6-16); Blood Urea Nitrogen 29 mg/dL (8-24); Bun/Creatinine Ratio 30.6 (12.0-20.0); CO2, Blood 28 mmol/L (21-32); Calcium, Blood 8.6 mg/dL (8.5-10.1); Chloride, Blood 107 mmol/L (98-108); Creatinine, Blood 0.95 mg/dL (0.40-1.00); Glomerular Filtration Rate >60 (60-); Glucose, Blood 106 mg/dL (70-99); Potassium, Blood 3.5 mmol/L (3.5-5.5); Sodium, Blood 139 mmol/L (136-145)
--- NOTE | 2019-09-18 06:14 | NUR ---
SHIFT SUMMARY PT SLEEPING COMFORTABLY IN ROOM AT THSI TIME. PT BECAME AGITATED MULTIPLE TIMES T/O D/T PAIN AT PACEMAKER. PT WAS MEDICATED FOR PAIN PER EMAR, AND MEDICATED FOR ANXIETY. PACEMAKER SITE WNL, SHOULDER IMMOBILIZER IN PLACE, PT CONTINUES TO PULL AT IMMOBILIZER WHEN AWAKE, REQUIRES CONSTANT REDIRECTION WHILE AWAKE. RESP EVEN UNLABORED ON RA W/ SATS >92%. PT REMAINS AOX1 ONLY, AND REQUIRED REDIRECTION MULTIPLE TIMES. PT WEAKER TONIGHT AND NEEDING MORE ASSISTANCE TO BSC. CALL LIGHT IN REACH. WILL REPORT OFF TO ONCOMING RN.
--- NOTE | 2019-09-18 07:32 | NUR ---
ASSUMED PATIENT CARE. PATIENT ASLEEP RESTING COMFORTABLY IN BED. EQUAL BIATERAL CHEST RISE WITH BREATH. NO SIGNS OF ACUTE DISTRESS, WCTM.
--- NOTE | 2019-09-18 10:20 | NUR ---
PATIENT AGITATED COMPLAINING OF PAIN, REPOSITIONED AND PAIN MEDS ADMINISTERED, OFFERED VERBAL COMFORT AND PROVIDED CALMING ENVIRONMENTAL MODIFICATION. PATIENT NOW RESTING COMFORTABLY IN BED. WCTM.
[2019-09-18] MEDS ORDERED: FURO40 PO (11:20)
[2019-09-18] MEDS ORDERED: ACET325 PO (11:20)
[2019-09-18] MEDS ORDERED: Milk Of Ma400 MG/5 M PO (11:21)
[2019-09-18] MEDS ORDERED: POTCHL20ER PO (11:25)
--- NOTE | 2019-09-18 14:45 | NUR ---
PATIENT AND SPOUSE PROVIDED DISCHARGE INFORMATION REGARDING NEW PACEMAKER, EDUCATED ON MED LIST, ANSWERED QUESTIONS REGARDING WOUND CARE AND DEMONSTRATED PACEMAKER DRESSING CHANGE. PATIENT SPOUSE VERBALIZED UNDERSTANDING OF FOLLOW-UP CARE AND APPOINTMENTS.
== END 2019-09-18 13:18 | disposition home or self-care (01) | DRG 243 ==
LOC: ER 03:37 → ICUE 03:38 → MEDS 03:38 → ICUE 09-16 05:54 → PCU 09-16 18:43
PROVIDERS: Emergency Medicine; Internal Medicine Cardiovascular Disease; ADMIT Internal Medicine
PROC: 0JH606Z Insertion of Pacemaker, Dual Chamber into Chest Subcutaneous Tissue and Fascia, Open Approach (ICD-10-PCS; principal; 2019-09-17)
PROC: 02HL3JZ Insertion of Pacemaker Lead into Left Ventricle, Percutaneous Approach (ICD-10-PCS; 2019-09-17)
PROC: 02H63JZ Insertion of Pacemaker Lead into Right Atrium, Percutaneous Approach (ICD-10-PCS; 2019-09-17)
DX: I49.5 Sick sinus syndrome (principal); I50.42 Chronic combined systolic (congestive) and diastolic (congestive) heart failure; I13.0 Hypertensive heart and chronic kidney disease with heart failure and stage 1 through stage 4 chronic kidney disease, or unspecified chronic kidney disease; I16.0 Hypertensive urgency; Z86.73 Personal history of transient ischemic attack (TIA), and cerebral infarction without residual deficits; F03.90 Unspecified dementia, unspecified severity, without behavioral disturbance, psychotic disturbance, mood disturbance, and anxiety; N18.1 Chronic kidney disease, stage 1; I49.3 Ventricular premature depolarization; E87.6 Hypokalemia; G47.33 Obstructive sleep apnea (adult) (pediatric); E87.5 Hyperkalemia; Z66 Do not resuscitate; E66.9 Obesity, unspecified; I77.1 Stricture of artery; Z68.33 Body mass index [BMI] 33.0-33.9, adult
CPT/HCPCS: 33208; 33228; 36415; 36600; 51701; 71045; 71046; 76937; 80048; 80053; 82330; 82550; 82803; 83735; 83880; 84443; 84484; 85025; 85027; 93005; 93010; 93308; 93321; 94640; 96365; 96366; 96372; 96375; 96376; 99152; 99153; 99285-25; A9270; A9270-GY; C1785; C1898; G0378; J0153; J0360; J0690; J1630; J1644; J1650; J1940; J2250; J3010; J7030; J7040; J7060

== ENCOUNTER 2019-10-13 11:05 | Emergency (ER) | payer MEDICARE, OTHER ==
[~2019-10-13] VITALS: Ht 172.7 cm; Wt 83.9 kg
[~2019-10-13 11:05] MED LIST changes: +ACET325 PO; +Milk Of Ma400 MG/5 M PO; +POTCHL20ER PO
[2019-10-13 11:44] LABS: BASOPHILS ABSOLUTE AUTO 0.02 K/mm3 (0.00-0.23); BASOPHILS PERCENT AUTO 0 % (0-2); EOSINOPHILS ABSOLUTE AUTO 0.07 K/mm3 (0.00-0.68); EOSINOPHILS PERCENT AUTO 2 % (0-6); Hematocrit 36.6 % (33.0-51.0); Hemoglobin 11.9 g/dL (11.5-16.0); IMMATURE GRAN ABSOLUTE AUTO 0.01 K/mm3 (0.00-0.10); IMMATURE GRAN PERCENT AUTO 0 % (0-1); LYMPHOCYTES ABSOLUTE AUTO 1.42 K/mm3 (0.84-5.20); LYMPHOCYTES PERCENT AUTO 30 % (21-46); MONOCYTES ABSOLUTE AUTO 0.53 K/mm3 (0.16-1.47); MONOCYTES PERCENT AUTO 11 % (4-13); Mean Corpuscular HGB 31.8 pg (26.0-34.0); Mean Corpuscular HGB Conc 32.5 g/dL (31.5-36.5); Mean Corpuscular Volume 98 fL (80-100); Mean Platelet Volume 10.1 fL (9.1-12.4); NEUTROPHILS ABSOLUTE AUTO 2.64 K/mm3 (1.96-9.15); NEUTROPHILS PERCENT AUTO 56 % (41-73); Platelet Count 193 K/mm3 (150-400); RDW Standard Deviation 76.5 fL (35.1-46.3); Red Blood Cell Count 3.74 M/mm3 (3.80-5.20); White Blood Cell Count 4.69 K/mm3 (4.00-11.30)
[2019-10-13 12:10] LABS: Alanine Aminotransfer (ALT/SGP 20 U/L (12-78); Albumin, Blood 3.7 g/dL (3.4-5.0); Alk Phos 42 U/L (50-136); Anion Gap 5 mmol/L (6-16); Aspartate Aminotrans (AST/SGOT 19 U/L (12-37); Bilirubin, Total 0.4 mg/dL (0.1-1.0); Blood Urea Nitrogen 27 mg/dL (8-24); Bun/Creatinine Ratio 30.2 (12.0-20.0); CO2, Blood 30 mmol/L (21-32); Chloride, Blood 107 mmol/L (98-108); Globulin, Blood 3.8 g/dL (2.2-4.0); Glomerular Filtration Rate >60 (60-); Glucose, Blood 97 mg/dL (70-99); Sodium, Blood 142 mmol/L (136-145); Total Protein, Blood 7.5 g/dL (6.4-8.2); Troponin I <0.015 ng/mL (0.000-0.040)
== END 2019-10-13 14:17 | disposition left against medical advice (07) ==
LOC: ER 11:05
PROVIDERS: Emergency Medicine
DX: Z53.21 Procedure and treatment not carried out due to patient leaving prior to being seen by health care provider (principal)
CPT/HCPCS: 36415; 71046; 80053; 83880; 84484; 85025; 93005; 93010

== ENCOUNTER 2019-12-19 15:09 | Emergency (ER) | payer MEDICARE, OTHER ==
[~2019-12-19] VITALS: Ht 172.7 cm; Wt 72.6 kg
[2019-12-19 15:45] LABS: BASOPHILS ABSOLUTE AUTO 0.03 K/mm3 (0.00-0.23); BASOPHILS PERCENT AUTO 0 % (0-2); EOSINOPHILS PERCENT AUTO 1 % (0-6); Hematocrit 35.3 % (33.0-51.0); Hemoglobin 11.7 g/dL (11.5-16.0); IMMATURE GRAN ABSOLUTE AUTO 0.03 K/mm3 (0.00-0.10); IMMATURE GRAN PERCENT AUTO 0 % (0-1); LYMPHOCYTES PERCENT AUTO 21 % (21-46); MONOCYTES ABSOLUTE AUTO 0.96 K/mm3 (0.16-1.47); MONOCYTES PERCENT AUTO 14 % (4-13); Mean Corpuscular HGB 34.3 pg (26.0-34.0); Mean Corpuscular HGB Conc 33.1 g/dL (31.5-36.5); Mean Corpuscular Volume 104 fL (80-100); Mean Platelet Volume 11.1 fL (9.1-12.4); NEUTROPHILS ABSOLUTE AUTO 4.51 K/mm3 (1.96-9.15); NEUTROPHILS PERCENT AUTO 63 % (41-73); NRBC ABSOLUTE 0.02 K/mm3 (0.00-0.02); NRBC Auto 0.3 /100 WBC (0.0-0.2); Platelet Count 175 K/mm3 (150-400); RDW Coefficient Variation 18.1 % (11.7-14.2); RDW Standard Deviation 68.8 fL (35.1-46.3); Red Blood Cell Count 3.41 M/mm3 (3.80-5.20); White Blood Cell Count 7.13 K/mm3 (4.00-11.30)
[2019-12-19 16:15] LABS: Anion Gap 7 mmol/L (6-16); Blood Urea Nitrogen 35 mg/dL (8-24); Bun/Creatinine Ratio 29.9 (12.0-20.0); CO2, Blood 27 mmol/L (21-32); Chloride, Blood 109 mmol/L (98-108); Creatinine, Blood 1.17 mg/dL (0.40-1.00); Glomerular Filtration Rate 47 (60-); Glucose, Blood 113 mg/dL (70-99); Potassium, Blood 4.4 mmol/L (3.5-5.5); Sodium, Blood 143 mmol/L (136-145); Troponin I <0.015 ng/mL (0.000-0.040)
[2019-12-19] MEDS ORDERED: LOSA50 PO (16:15)
[2019-12-19] MEDS ORDERED: Norco 5-325 Ta1 EACH PO (16:15)
[2019-12-19] MEDS ORDERED: AMLO5 PO (16:15)
[2019-12-19] MEDS ORDERED: BACL10 PO (16:16)
[2019-12-19] MEDS ORDERED: CALCIUM CARBON500 M1 PO (16:16)
[2019-12-19] MEDS ORDERED: Namenda5 MG PO (16:16)
[2019-12-19] MEDS ORDERED: Furosemide40 MG PO (16:17)
[2019-12-19] MEDS ORDERED: MULTIVITAMIN1 EACH PO (16:17)
[2019-12-19] MEDS ORDERED: ACET325 PO (16:17)
[2019-12-19] MEDS ORDERED: K-TAB ER20 ME2 PO (16:18)
== END 2019-12-19 16:40 | disposition home or self-care (01) ==
LOC: ER 15:09
PROVIDERS: Emergency Medicine
DX: T82.897A Other specified complication of cardiac prosthetic devices, implants and grafts, initial encounter (principal); I49.3 Ventricular premature depolarization; F03.90 Unspecified dementia, unspecified severity, without behavioral disturbance, psychotic disturbance, mood disturbance, and anxiety; I10 Essential (primary) hypertension; I49.5 Sick sinus syndrome; I51.89 Other ill-defined heart diseases
CPT/HCPCS: 36415; 71045; 80048; 84484; 85025; 93005; 93010; 99285-25

== ENCOUNTER 2020-01-18 07:55 | Observation (INO) | payer MEDICARE, OTHER ==
[~2020-01-18] VITALS: Ht 170.2 cm; Wt 99.7 kg
[~2020-01-18 07:55] MED LIST changes: +CALCIUM CARBON500 M1 PO; +Furosemide40 MG PO; +K-TAB ER20 ME2 PO; +MULTIVITAMIN1 EACH PO; +Namenda5 MG PO
--- NOTE | 2020-01-18 09:51 | NUR ---
pt unresponsive and slightly labored respirations. bruising to both eyes. at bedside He is very fatigued and has been providing more care for her and having difficulty getting her to eat the past week. He has had difficulty taking meds. She has been having more edema so he took her to see doctor annabella and he adjusted her lasix. states she has been voiding more. He states that she pulled on her pacemaker and it has a broken wire. states his children live about 10 minutes away and come to help him. We discussed comfort care and hospice care and the need to admit. He states she would want to at home. Goal is to get her comfortable and to transition home on hospice. Reviewed hopsice with and equipment needs. ER rn critical care working with . He will need support he is showing significant day care assistant stress.
[2020-01-18 13:59] LABS: BASOPHILS ABSOLUTE AUTO 0.02 K/mm3 (0.00-0.23); BASOPHILS PERCENT AUTO 0 % (0-2); EOSINOPHILS ABSOLUTE AUTO 0.02 K/mm3 (0.00-0.68); EOSINOPHILS PERCENT AUTO 0 % (0-6); Hematocrit 40.9 % (33.0-51.0); Hemoglobin 12.6 g/dL (11.5-16.0); IMMATURE GRAN ABSOLUTE AUTO 0.04 K/mm3 (0.00-0.10); IMMATURE GRAN PERCENT AUTO 0 % (0-1); LYMPHOCYTES ABSOLUTE AUTO 0.75 K/mm3 (0.84-5.20); LYMPHOCYTES PERCENT AUTO 8 % (21-46); MONOCYTES ABSOLUTE AUTO 0.89 K/mm3 (0.16-1.47); MONOCYTES PERCENT AUTO 10 % (4-13); Mean Corpuscular HGB 33.2 pg (26.0-34.0); Mean Corpuscular HGB Conc 30.8 g/dL (31.5-36.5); Mean Corpuscular Volume 108 fL (80-100); Mean Platelet Volume 10.4 fL (9.1-12.4); NEUTROPHILS ABSOLUTE AUTO 7.22 K/mm3 (1.96-9.15); NEUTROPHILS PERCENT AUTO 81 % (41-73); NRBC ABSOLUTE 0.03 K/mm3 (0.00-0.02); NRBC Auto 0.3 /100 WBC (0.0-0.2); Platelet Count 182 K/mm3 (150-400); RDW Standard Deviation 77.3 fL (35.1-46.3); Red Blood Cell Count 3.79 M/mm3 (3.80-5.20); White Blood Cell Count 8.94 K/mm3 (4.00-11.30)
--- NOTE | 2020-01-18 15:02 | NUR ---
met with pt and physcian for plan of care. Oral care given grimce and attemtps to suck at sponge, non verbal no pupil reactions. airway patetns respirations slightly labored. Requested prn meds. Supportive care to and got him to go home and rest. Gave him our phone number and the hospital number.
[2020-01-18 15:34] LABS: Source, Urine Clean Catch
[2020-01-18 15:44] LABS: Bilirubin, Urine Neg (Neg); Blood, Urine Neg (Neg); Glucose Qualitative, Urine Neg (Neg); Ketones, Urine Neg (Neg); Leukocyte Esterase, Urine Neg (Neg); Nitrite, Urine Neg (Neg); Protein, Urine 3+ (Neg); Urobilinogen, Urine NORM (Normal)
[2020-01-18 15:45] LABS: Appearance, Urine Clear (Clear); Color, Urine Yellow (P-Yellow)
[2020-01-18 15:52] LABS: Bacteria Few /hpf; Red Blood Cells, Urine 0-2 /hpf (0-2); Squamous Epithelial Cells Few /hpf (Few); White Blood Cells, Urine 0-2 /hpf (0-5)
--- NOTE | 2020-01-18 18:14 | NUR ---
SUMMARY PT ADMITTED FROM THE ER, WAS GOING TO BE COMFORT CARE, DR RAY CAME TO SEE THE PT AND SPOKE WITH HER SPOUSE, NO COMFORT CARE AT THIS TIME, ESCUDERO CATH PLACED, LEMUEL WELL, PT MORE AWAKE AFTER GETTING IV FLUIDS AND TYLENOL, ABLE TO ANSWER YES AND NO QUESTIONS, UNSURE IF PLAN IS STILL TO DC IN AM WITH [facility] OR NOT, WILL CONT TO MONITOR
--- NOTE | 2020-01-18 23:53 | NUR ---
WILLIAM APPLIED TO IV SITE DUE TO HIGH RISK FOR PT REMOVAL
--- NOTE | 2020-01-18 23:54 | NUR ---
HAD SECURED IV SITE X 2 AND PT HAD REMOVED COBAN APPLIED TAPE TO SECURE SITE & pt PULLED IV WITH CANNULA INTACT.
--- NOTE | 2020-01-18 23:56 | NUR ---
PT RESPONDS TO VERBAL STIMULI. SHE KNEW Spouses name & she was at [facility]. Aggitated & repeated attempts to climb out of bed & remove munguia cath & IV cath. Secured cath & IV cannula and PT removed cath secure & despite coban & tape pulled out IV. PT wheezy and has poor oxygenation despite 4 l oxygen. Bilat pneumonia & falls with head hit several times in last 3 days. Spouse Tony called several times for update on . PT put on remote camera monitoring & has fall precautions in place. Pt new cath secure for munguia & attempting IV access. Continue to assess & NPO. PT has cough weak productive.
--- NOTE | 2020-01-19 01:03 | NUR ---
DR JOEL updated on hypoxia 89% on 4 l oxygen , & co acute on chronic pain, bilat diminished breath sounds rapid respirations & CHF with missed AM dose lasix. PT has munguia cath NKDA & has severe head pain on top of chronic pain she uses TID norco 5/325 mg & baclofen for spasm. Lasix IV x 1 & fentanyl 25 to 50 mcg Q 4 prn for acute pain. Restablished IV access & secured fluids running at 100 ml hr .
[2020-01-19 05:23] LABS: BASOPHILS ABSOLUTE AUTO 0.03 K/mm3 (0.00-0.23); BASOPHILS PERCENT AUTO 0 % (0-2); EOSINOPHILS ABSOLUTE AUTO 0.02 K/mm3 (0.00-0.68); EOSINOPHILS PERCENT AUTO 0 % (0-6); Hematocrit 38.9 % (33.0-51.0); Hemoglobin 12.2 g/dL (11.5-16.0); IMMATURE GRAN ABSOLUTE AUTO 0.06 K/mm3 (0.00-0.10); IMMATURE GRAN PERCENT AUTO 1 % (0-1); LYMPHOCYTES ABSOLUTE AUTO 0.34 K/mm3 (0.84-5.20); LYMPHOCYTES PERCENT AUTO 4 % (21-46); MONOCYTES ABSOLUTE AUTO 0.62 K/mm3 (0.16-1.47); MONOCYTES PERCENT AUTO 7 % (4-13); Mean Corpuscular HGB 33.6 pg (26.0-34.0); Mean Corpuscular HGB Conc 31.4 g/dL (31.5-36.5); Mean Corpuscular Volume 107 fL (80-100); Mean Platelet Volume 10.6 fL (9.1-12.4); NEUTROPHILS ABSOLUTE AUTO 7.53 K/mm3 (1.96-9.15); NEUTROPHILS PERCENT AUTO 88 % (41-73); NRBC ABSOLUTE 0.02 K/mm3 (0.00-0.02); NRBC Auto 0.2 /100 WBC (0.0-0.2); Platelet Count 185 K/mm3 (150-400); RDW Coefficient Variation 18.9 % (11.7-14.2); RDW Standard Deviation 76.1 fL (35.1-46.3); Red Blood Cell Count 3.63 M/mm3 (3.80-5.20)
[2020-01-19 05:47] LABS: Albumin, Blood 3.8 g/dL (3.4-5.0); Albumin/Globulin Ratio 1.1 (0.8-1.8); Bilirubin, Total 0.8 mg/dL (0.1-1.0); Bun/Creatinine Ratio 23.6 (12.0-20.0); Calcium, Blood 8.6 mg/dL (8.5-10.1); Creatinine, Blood 0.98 mg/dL (0.40-1.00); Globulin, Blood 3.5 g/dL (2.2-4.0); Total Protein, Blood 7.3 g/dL (6.4-8.2)
--- NOTE | 2020-01-19 07:13 | NUR ---
860 ml urine out after lasix 40 mg IV given. Medicated x 2 with fent 25 to 50 mcg for acute head & neck pain. 50 mcg was more effective. intermittant aggitation with stripping & removal of medical lines, moderate anxiety calling out for Spouse Tony attempting to climb out of bed. Remote camera monitoring continues.
--- NOTE | 2020-01-19 10:15 | NUR ---
I'M IN THE ROLE OF CNA2 STUDENT TODAY
--- NOTE | 2020-01-19 12:22 | NUR ---
pt minimally responseive nursing reports some minimal interaction with turning, respirations slighly labored. Review with care professional and physician prognosis and pt needs. plan is to return home with hospice. Multiple supportive calls to to assist him with the transition.
--- NOTE | 2020-01-19 13:55 | NUR ---
SUMMARY/DISCHARGE PT DISCHARGED TO HOME WITH HOSPICE, TRANSPORTATION ARRANGED BY DISCHARGE PLANNING, PT TAKEN HOME VIA [facility]
== END 2020-01-19 13:45 | disposition hospice, home (50) ==
LOC: ER 07:55 → MEDS 07:56
PROVIDERS: ADMIT Internal Medicine
DX: G30.9 Alzheimer's disease, unspecified (principal); F02.80 Dementia in other diseases classified elsewhere, unspecified severity, without behavioral disturbance, psychotic disturbance, mood disturbance, and anxiety; E86.0 Dehydration; J96.01 Acute respiratory failure with hypoxia; I13.0 Hypertensive heart and chronic kidney disease with heart failure and stage 1 through stage 4 chronic kidney disease, or unspecified chronic kidney disease; Z91.81 History of falling; G93.40 Encephalopathy, unspecified; I50.32 Chronic diastolic (congestive) heart failure; G47.33 Obstructive sleep apnea (adult) (pediatric); F41.9 Anxiety disorder, unspecified; K21.9 Gastro-esophageal reflux disease without esophagitis; N18.3 Chronic kidney disease, stage 3 (moderate); G89.4 Chronic pain syndrome; Z79.899 Other long term (current) drug therapy; Z66 Do not resuscitate
CPT/HCPCS: 36415; 70450; 71045; 72125; 80053; 81001; 82947; 84145; 85025; 93005; 93010; 99285-25; G0378; J1650; J1940; J3010; J3480